=== PATIENT | female | born 1970 | race Caucasian/White ===

== ENCOUNTER 2017-02-20 11:21 | Inpatient (IN) | payer OTHER, MEDICAID ==
[~2017-02-20] VITALS: Ht 170.2 cm; Wt 95.3 kg
[~2017-02-20 11:21] MED LIST: FURO20TA PO; LEVO750T23 PO; eye drops; multivitamin PO
[2017-02-20 11:46] VITALS: BP 123/88; PULSE 95; RESP 16; O2SAT 72
--- NOTE | 2017-02-20 12:00 | ED.REPORT ---
HPI-Dyspnea / Wheezing Date of Service Feb 20, 2017 ED Provider: Cooper Barlow DO A 46 year old female on blood thinners with a history of methamphetamine abuse, heroin abuse, DVT, personality disorder, cardiomyopathy, CHF, pulmonary hypertension, MRSA infection, edema, asthma, pneumonia, depression, anxiety and hepatitis C presents to the ED due to hypoxia. The pt was recently admitted to [facility] for "a weak heart and low oxygen," and left AMA yesterday. Her medications were confiscated prior to the pt leaving. She was seen by her PCP this morning who noticed mottled, purple coloration of her legs and oxygen saturation in the seventies on room air. She now has oxygen saturations in the eighties on four liters of oxygen. The pt states that her legs were mottled when she was admitted but looked normal last night. She occasionally experiences leg pain and numbness. The pt also reports nausea, vomiting and abdominal pain for one week, though she denies hematemesis or hematochezia. Nursing Notes Stated Complaint: HEART ISSUES,LOW OXYGEN Chief Complaint: General Complaint Nursing Notes Reviewed: Yes Allergies: Coded Allergies: No Known Allergies (Verified , 02/12/13) Scheduled Aspirin (Aspirin) 325 Mg Tablet 325 MG PO QAM Fluticasone/Salmeterol (Advair 250-50 Diskus) 60 Puff/Inh Disk 1 PUFF IH BID Furosemide (Furosemide) 40 Mg Tablet 40 MG PO QAM Gabapentin (Gabapentin) 300 Mg Capsule 300 MG PO QAM GABAPENTIN 300 MG IN AM, 600 MG AT NOON, AND 900-1200 MG AT HS. Gabapentin (Gabapentin) 300 Mg Capsule 600 MG PO DAILYWL GABAPENTIN 300 MG IN AM, 600 MG AT NOON, AND 900-1200 MG AT HS. Gabapentin (Gabapentin) 300 Mg Capsule 900-1,200 MG PO HS GABAPENTIN 300 MG IN AM, 600 MG AT NOON, AND 900-1200 MG AT HS. Multivit with Calcium,Iron,Min (Multivitamins [id number]) 1 Each Tablet 1 EACH PO QAM Rivaroxaban (Xarelto) 15 Mg Tablet 15 MG PO BID Sildenafil Citrate (Sildenafil) 20 Mg Tablet 20 MG PO TID Scheduled PRN Hydromorphone (Hydromorphone) 2 Mg Tablet 2 MG PO Q6H PRN PRN Pain General Time Seen by MD: 11:59 Chief Complaint Other (Low oxygen saturation) Hx Obtained From: Patient, Other family... 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 GI: Reports: Abdominal pain, Nausea, Vomiting, Denies: Hematemesis, Hematochezia Neurologic: Reports: Numbness Physical Exam Initial Vital Signs Vital Signs (First) Date Time Temp Pulse Resp B/P Pulse Ox O2 Delivery O2 Flow Rate FiO2 02/20/17 11:46 36.5 95 16 123/88 72 Room Air Initial VS: Reviewed General/Constitutional: Awake, Alert Distress / Hydration: Positive: Distress moderate Neck: Atraumatic, Supple, Full range of motion Respiratory / Chest: Atraumatic, Breath sounds = bilat breath sounds diminished bilaterally hypoxic Cardiovascular: Heart rate NL, Regular rhythm 3/6 systolic murmur across precordium ENT: Atraumatic, Airway patent, Mucous membranes moist Abdomen: Atraumatic, Soft, Non-tender Back: Atraumatic, Full range of motion Lower Extremity / Pelvis / MS: Full range of motion Skin: Warm, Dry fingers mottled and purple toes mottled and purple lower extremities mottles and edematous multiple open, ulcerative wounds on bilateral anterior tibias Neurologic: Oriented X3, Speech NL, No motor deficits, No sensory deficits Head / Eyes: Atraumatic, Normocephalic, PERRL, EOMI Upper Extremity / MS: Atraumatic, Full range of motion Psychiatric: Affect NL, Mood NL Interpretation & Diagnostics Lab Results Interpretation Result Diagram: 02/20/17 1210 02/20/17 1210 Test 02/20/17 12:10 02/20/17 12:56 White Blood Count 10.3th/mm3 (3.8-10.1) Red Blood Count 4.89mil/mm3 (3.90-5.20) Hemoglobin 11.6g/dL (12.0-15.6) Hematocrit 37.6% (35.0-46.0) Mean Corpuscular Volume 76.9fL (81-100) Mean Corpuscular Hemoglobin 23.7pg (27.0-35.0) Mean Corpuscular Hemoglobin Concent 30.9% (32.0-37.0) Red Cell Distribution Width 17.5% (12.3-15.4) Platelet Count 208bil/L (150-400) Neutrophils (%) (Auto) 60.2% (40-74) Lymphocytes (%) (Auto) 24.0% (14-46) Monocytes (%) (Auto) 13.1% (4-12) Eosinophils (%) (Auto) 2.0% (0-5) Basophils (%) (Auto) 0.4% (0-3) Prothrombin Time 12.0sec (8.1-12.5) Prothromb Time International Ratio 1.12ratio Activated Partial Thromboplast Time 28.7sec (22.8-33.0) D-Dimer 1.02mg/L FEU (<0.50) Sodium Level 135mEq/L (134-144) Potassium Level 3.3mEq/L (3.5-5.2) Chloride Level 93mEq/L (97-108) Carbon Dioxide Level 25mmol/L (18-29) Blood Urea Nitrogen 21mg/dL (6-24) Creatinine 0.74mg/dL (0.57-1.00) Estimat Glomerular Filtration Rate 120mL/min (>59) Glucose Level 125mg/dL (60-99) Lactic Acid Level 1.9mmol/L (0.4-2.0) Calcium Level 8.8mg/dL (8.5-10.1) Magnesium Level 1.9mg/dL (1.6-2.6) Total Bilirubin 0.6mg/dL (0.0-1.2) Aspartate Amino Transf (AST/SGOT) 32U/L (0-50) Alanine Aminotransferase (ALT/SGPT) 18U/L (0-32) Alkaline Phosphatase 73U/L (25-150) Troponin T 0.010ug/L (0.0-0.011) Pro-B-Type Natriuretic Peptide 44864pn/mL (0-249) Total Protein 7.0g/dL (6.4-8.4) Albumin 3.5g/dL (3.4-5.0) Procalcitonin 0.04ng/mL (0.00-0.08) Urine Color Yellow (YELLOW) Urine Appearance Clear (CLEAR,HAZY) Urine pH 6.0 (5.0-8.0) Urine Specific [place] 1.015 (1.003-1.035) Urine Protein 30mg/dL (NEG,TRACE) Urine Glucose (UA) Negativemg/dL (NEGATIVE) Urine Ketones Negativemg/dL (NEGATIVE) Urine Occult Blood Negative (NEGATIVE) Urine Nitrite Negative (NEGATIVE) Urine Bilirubin Negative (NEGATIVE) Urine Urobilinogen Normalmg/dL (NORMAL) Urine Leukocyte Esterase Trace (NEGATIVE) Urine RBC 0-2/hpf (0-2) Urine WBC 0-5/hpf (0-5) Urine Epithelial Cells Few/hpf (NONE-MOD) Urine Crystals None seen (NONE SEEN) Urine Bacteria Few/hpf (NONE-FEW) Urine Hyaline Casts None/lpf (NONE) Urine Granular Casts None seen (NONE SEEN) Urine Waxy Casts None seen (NONE SEEN) Urine Red Blood Cell Casts None seen (NONE SEEN) Urine White Blood Cell Casts None seen (NONE SEEN) Urine Mucus None seen (None Seen) Urine Trichomonas None seen (NONE SEEN) Urine Yeast None (NONE SEEN) Urinalysis Comment None Urine Culture Reflexed Indicated Lab Results Interpretation: Positive d-dimer ABG: pH 7.508/pCO2 39/pO2 58.8/cHCO3- 30.4/cBase 7.1 ECG Interpretation ECG Interpretation: normal sinus rhythm with a rate of 91 RBBB and LAFB nonspecific T abnormalities, lateral leads Time: 12:34 Interpreted by: ED physician X-Ray Chest Interpretation Chest Xray Interpretation: IMPRESSION: 1. Pleural-parenchymal opacity at the right lung base remains prominent. Interval improvement at the left base. Dictated by: Jessee Bueno M.D. on 02/20/2017 at 13:08 Approved by: Jessee Bueno M.D. on 02/20/2017 at 13:11 Interpretation / Wet Read by: Interpret - Radiologist CT Abd / Pelvis Interpretation IMPRESSION: 1. Bilateral pleural effusions and bibasilar atelectasis. Possibility of pneumonia cannot be excluded. Source of effusions not known. 2. Diffuse edema throughout the abdominal and pelvic cano. 3. Hepatosplenomegaly. 4. Status post cholecystectomy. 5. Moderate amount of fluid in the pelvis could reflect mild ascites that is nonspecific. Dictated by: Jessee Bueno M.D. on 02/20/2017 at 13:57 Approved by: Jessee Bueno M.D. on 02/20/2017 at 14:11 Interpretation / Wet Read by: Interpret - Radiologist Re-Eval/Medical Decision Med Decision/Clinical Course likely findings of pulmonary hypertension and heart failure which is decompensated. Patient was stabilized initially on high flow nasal cannula is given 40 mg of IV Lasix and sildenafil. Neurology is consulted and does come down to the bedside to evaluate. Patient will be going to the intensive care unit. Source of Hx: Old records Re-Evaluation/Progress #1: Time of Eval: 12:13 Re-Evaluation/Progress Note: Pt rechecked, who is stable. Further history is obtained. Re-Evaluation/Progress #2: Time of Eval: 12:31 Patient Status: Condition improved Re-Evaluation/Progress Note: Pt rechecked, who is feeling better on a high flow nasal canula. Re-Evaluation/Progress #3: Time of Eval: 12:37 Re-Evaluation/Progress Note: Pt rechecked, who is stable. Oxygen saturation is 97% on HFNC 70% FiO2. Re-Evaluation/Progress #4: Time of Eval: 12:43 Re-Evaluation/Progress Note: Pt rechecked results are discussed. The diagnosis and plan for admission are discussed. The pt understands and agrees with the plan. All questions are addressed at this time. Consultation #1: Referral / Consult Name: Giovanni Christianson MD Call Returned at: 13:50 Cdl Driver: Will see patient, Agrees with eval, Agrees with plan Note: Spoke with Dr. Velez, slab tripper, regarding pt's case. Dr. Velez agrees with the evaluation and will see the pt. Consultation #2: Referral / Consult Name: Fang Taylor DO Consulted With: Hospitalist Call Returned at: 13:58 Cdl Driver: Agrees with eval, Agrees with plan, Accepts admit Note: Spoke with Dr. Taylor, hospitalist, regarding pt's case. Dr. Taylor agrees with the evaluation and agrees to admit the pt. Counseled Regarding: Diagnosis, Lab results, Need for admission Discharge & Departure Impression: Primary Impression: Respiratory failure Chronicity: unspecified Respiratory failure complication: unspecified whether with hypoxia or hypercapnia Qualified Code: J96.90 - Respiratory failure, unspecified, unspecified whether with hypoxia or hypercapnia Additional Impression: Pulmonary hypertension Disposition: ADMITTED TO HOSPITAL Discharge Condition All VS Reviewed: Yes Condition: Stable Referrals: Maria Teresa Dunbar MD (PCP) Crit Care Except Billable Proc Time Spent: 75-104 minutes (88 minutes) Services Performed: Patient management by me, Time spent at bedside, Reviewing test results, Reviewing imaging, Discussing patient care, Documentation in record, Time with fam/surrogate Scribe Attestation Portions of this note were transcribed by Jay Jay Horton. I, Dr. Barlow personally performed the history, physical exam and medical decision-making; I reviewed and confirmed the accuracy of the information in the transcribed note. copies to: Maria Teresa Dunbar MD, Timothy S DO Feb 20, 2017 12:00 JAY JAY HORTON Feb 20, 2017 12:12
[2017-02-20] MEDS ORDERED: Furosemide 10 mg/mL 2 mL Inj IVPUSH ONE ×2 (12:10→13:55)
[2017-02-20 12:24] LABS: BASOPHILS % (AUTO) 0.4 % (0-3); MONOCYTES % (AUTO) 13.1 % (4-12); Mean Corpuscular Hemoglobin 23.7 pg (27.0-35.0); Mean Corpuscular Volume 76.9 fL (81-100); NEUTROPHILS % (AUTO) 60.2 % (40-74); Platelet Count 208 bil/L (150-400)
[2017-02-20] MEDS ORDERED: Heparin 25K Unit/500mL 0.45 NS 25,000 UNIT in IV Premix 1 EACH IV ONE (12:50)
[2017-02-20] MEDS ORDERED: Heparin 5,000 Unit/mL Inj IVPUSH ONE (12:50)
[2017-02-20 12:52] LABS: D-Dimer 1.02 mg/L FEU (<0.50); INR 1.12 ratio
--- NOTE | 2017-02-20 12:54 | ABG ---
DateTimeAnalyzed 12:45:00 -_ pH ____7.508 - 7.350 7.450 pCO2 ___38.6__ -mmHg 35.0 45.0 pO2 ___58.8__ -mmHg 69.0 116 HCO3- ___30.4__ -mmol/L 22.0 26.0 ABE ____7.1__ -mmol/L -2.0 2.0 tHb ___11.6__ -g/dL 12.0 18.0 O2Hb ___87.7__ -% COHb ____2.9__ -% 0.0 1.5 MetHb ____0.8__ -% 0.4 1.5 sO2 ___91.1__ -% FIO2 ___70.0__ -% Drawn By lw - Date/Time Notified____ 12:53:00 -_ Liter_Flow ___50.0__ -L/min Oxygen Device 1 high flow - Notified By lw - Notified Whom ___Dr. O'Peggy - Age 38 -years B 755 -mmHg tO2 ___14.3__ -Vol% Oliver test _Positive -
[2017-02-20 12:55] LABS: TROPONIN T 0.01 ug/L (0.0-0.011)
[2017-02-20 13:06] LABS: Magnesium 1.9 mg/dL (1.6-2.6)
[2017-02-20 13:11] LABS: APPEARANCE,URINE CLEAR (CLEAR,HAZY); COLOR,URINE YELLOW (YELLOW)
[2017-02-20 13:12] LABS: OCCULT BLOOD,URINE NEGATIVE (NEGATIVE); UROBILINOGEN,URINE NORMAL (NORMAL)
--- NOTE | 2017-02-20 13:13 | DRSVH ---
PROCEDURE: X-RAY CHEST ONE VIEW, PORTABLE ([id number]) INDICATIONS: dyspnea TECHNIQUE: One view of the chest was acquired. COMPARISON: 02/13/2017 FINDINGS: Surgical changes and devices: None. Lungs and pleura: Bilateral pleural effusions, no pneumothorax. Increased radiodensity at the right lung base, consolidation versus loculated fluid. Infiltrate in the left retrocardiac region appears i mproved, residual soft tissue convexity along the medial border.. Mediastinum: Mediastinal contours appear normal. Heart size is normal. Bones and chest wall: No suspicious bony lesions. Overlying soft tissues appear unremarkable. IMPRESSION: 1. Pleural-parenchymal opacity at the right lung base remains prominent. Interval improvement at the left base. Dictated by: Jessee Bueno M.D. on 02/20/2017 at 13:08 Approved by: Jessee Bueno M.D. on 02/20/2017 at 13:11
--- NOTE | 2017-02-20 13:58 | DRSVH ---
PROCEDURE: CT ANGIO CHEST PULMONARY EMBOLISM ([id number]) INDICATIONS: Hypoxia with history of DVT. TECHNIQUE: After the administration of intravenous contrast, 2 mm thick sections acquired from the pulmonary api ry to the posterior costophrenic angles. 3-dimensional maximum intensity projection (MIP) coronal a nd sagittal reformats were then acquired through the thorax. For radiation dose reduction, the follo wing was used: automated exposure control, adjustment of mA and/or kV according to patient size. COMPARISON: [facility], CT, CT ABD PELVIS W CON, 02/20/2017, 13:24. [facility] al, CT, CHEST ANGIO-PE, 10/25/2013, 1:04. FINDINGS: Image quality: There is mild asymmetric motion artifact. Pulmonary arteries: Pulmonary arteries demonstrate no intraluminal filling defects to suggest centra l pulmonary embolism. Evaluation of subsegmental branches is nondiagnostic in the lung bases due to respiratory motion artifact. The pulmonary arteries are enlarged, with the main pulmonary artery martin suring up to 3.5 cm suggesting pulmonary arterial hypertension. Lungs and pleura: There are bilateral pleural effusions, moderate to large on the right and on the le ft, with associated compressive atelectasis. There are a few small groundglass nodules in the right apex and mild atelectasis along the right upper lobe posteriorly. The trachea and central airways ap pear patent. Mediastinum: The heart is mildly enlarged with prominent right ventricular enlargement and mild leftw debra deviation of the interventricular septum. No pericardial effusion. No mediastinal or hilar mary ann opathy by size criteria. Thoracic aorta is normal in caliber and enhancement. Esophagus is normal i n caliber, without hiatal hernia. Bones and chest wall: No suspicious bony lesions. Ribs and thoracic spine appear intact throughout. Thyroid gland demonstrates no discrete nodules. No axillary or supraclavicular adenopathy by size criteria. Abdomen: Visualized upper abdomen demonstrates enlargement and mildly heterogeneous appearance of th e liver which is incompletely evaluated on the current study. IMPRESSION: 1. No definite evidence of central pulmonary embolism. Evaluation of subsegmental branches in the l dian bases is nondiagnostic due to motion artifact. 2. Bilateral pleural effusions, moderate to large on the right and small on the left, with associate d compressive atelectasis. 3. Small clustered ground glass nodules in the right lung apex are nonspecific but likely infectious or inflammatory in etiology. 4. Enlargement of the pulmonary arteries as well as right ventricular enlargement suggesting pulmona ry arterial hypertension. Dictated by: Rashawn Coronado M.D. on 02/20/2017 at 13:44 Approved by: Rashawn Coronado M.D. on 02/20/2017 at 13:56
--- NOTE | 2017-02-20 14:13 | DRSVH ---
PROCEDURE: CT ABDOMEN AND PELVIS WITH CONTRAST ([id number]) INDICATIONS: hypoxia, abd pain TECHNIQUE: After the administration of intravenous contrast, 5 mm thick sections acquired from the diaphragm to the symphysis. 5 mm coronal and sagittal reformats were acquired. For radiation dose reduction, the following was used: automated exposure control, adjustment of mA and/or kV according to patient siz e. COMPARISON: CT abdomen and pelvis 12/25/2012; CTA chest 02/20/2017 FINDINGS: Image quality: Excellent. ABDOMEN: Lung bases: Bilateral pleural effusions, right greater than left, persistent since last exam. Bibasil ar atelectasis. Heart size appears normal. The superior vena cava above the diaphragm is prominent. Solid organs: Liver is enlarged at 23.5 cm, spleen is enlarged measuring 14.7 cm craniocaudal. Hepat osplenic enhancement is heterogeneous, probably related to timing of bolus injection. Gallbladder is surgically absent. Biliary system is non dilated. Pancreas enhances normally. No adrenal nodules. Kidneys demonstrate normal size and enhancement, without hydronephrosis. Peritoneum and bowel: Bowel loops demonstrate normal wall thickness and caliber. Moderate amount of stool throughout the colon. Normal appendix. No free fluid or air. Nodes and vessels: No retroperitoneal or mesenteric adenopathy by size criteria. Aorta and inferior vena cava are normal in size. Miscellaneous: Diffuse edema throughout the abdominal wall and pelvis. No ventral hernias. PELVIS: Genitourinary: The bladder is collapsed around a Stevens catheter. Intraluminal air noted. Uterus appea rs normal in size. A 1.7 cm cyst is present in the left ovary. A moderate amount of free fluid is pre sent in the pelvis. Miscellaneous: No inguinal hernias or adenopathy. Bones: No suspicious bony lesions. Levoconvex scoliosis. No vertebral body compression fractures. Degenerative disc disease L5-S1. L5 spondylolysis with grade 1 spondylolisthesis. IMPRESSION: 1. Bilateral pleural effusions and bibasilar atelectasis. Possibility of pneumonia cannot be excluded . Source of effusions not known. 2. Diffuse edema throughout the abdominal and pelvic cano. 3. Hepatosplenomegaly. 4. Status post cholecystectomy. 5. Moderate amount of fluid in the pelvis could reflect mild ascites that is nonspecific. Dictated by: Jessee Bueno M.D. on 02/20/2017 at 13:57 Approved by: Jessee Bueno M.D. on 02/20/2017 at 14:11
[2017-02-20] MEDS: fentaNYL-PF 50 mCg/mL 2 mL Inj IVPUSH PRN ×3 (14:43→19:53)
[2017-02-20 14:45] VITALS: BP 104/75; PULSE 88; RESP 19; O2SAT 92
[2017-02-20] MEDS ORDERED: ASPI325T32 PO (15:11)
[2017-02-20] MEDS ORDERED: SILD20TA14 PO (15:11)
[2017-02-20] MEDS ORDERED: MULT-528 PO (15:11)
[2017-02-20] MEDS ORDERED: HYDR2TAB28 PO (15:11)
[2017-02-20] MEDS ORDERED: GABA-502 PO ×3 (15:11)
[2017-02-20] MEDS ORDERED: FURO40TA4 PO (15:11)
[2017-02-20] MEDS ORDERED: RIVA15TA PO (15:11)
[2017-02-20] MEDS ORDERED: ADV250INH IH (15:12)
[2017-02-20 16:00] VITALS: BP 105/62; PULSE 88; RESP 12; O2SAT 95
[2017-02-20 16:02] VITALS: BP 106/79; PULSE 86; RESP 21; O2SAT 90
[2017-02-20] MEDS ORDERED: Polyethylene Glycol (PEG) 17 Gm Powder PO PRN (17:15)
[2017-02-20] MEDS ORDERED: Alum-Mag Hydrox-Simeth 30 mL Suspension PO PRN (17:15)
--- NOTE | 2017-02-20 17:27 | PCM.ADCARE ---
Advance Care Planning Note CODE STATUS: Date: 02/20/2017 Diagnosis: Acute respiratory failure with hypoxia Cardiomyopathy Severe tricuspid regurg Pulmonary hypertension Iron deficiency anemia History of DVT Drug dependence Purpose of encounter: Goals of care Parties in attendance: The patient, Dr. Taylor Decisional capacity: Good Plan: The patient is aware of the current diagnosis and would like to continue to be full code. The patient understands that this means for chest compressions , intubation, pressors, and all measures involved with CPR. CODE STATUS: Full code Time spent with advanced care planning: Greater than 16 minutes Fang Taylor DO Feb 20, 2017 17:27
--- NOTE | 2017-02-20 18:26 | PCM.HPMED ---
Subjective Date of Service Feb 20, 2017 Primary Provider: Admitting Physician: Fang Taylor DO Primary Care Physician: Maria Teresa Dunbar MD Attending Physician: Fang Taylor DO Admit Status: From the Emergency Department Chief Complaint: Shortness of breath History of Present Illness: 46-year-old female reportedly on blood thinners for DVT with a history of polysubstance abuse as well as cardiomyopathy, pulmonary hypertension, and MRSA and Hep C infection presents to the [facility] ED due to shortness of breath. The patient reports that she was admitted to [facility] in [place] for low oxygenation due to her weak heart however she left AMA yesterday when they start talking to her about possibly going on hospice. The patient states that her medications were confiscated prior to the patient leaving. The patient was seen by her PCP this morning and noticed discoloration of her legs with a low oxygen saturation reportedly in the 70s on room air. The patient states that her legs were mottled when she was admitted to [facility] but looked normal last night. The patient occasionally experiences leg pain and numbness. The patient also reports abdominal and GI distress over the last week with nausea vomiting and lower abdominal pain however denies hematemesis hematochezia or melena. She admits to nausea, several episodes of vomiting including three times today, vomiting secondary to coughing, daily episodes of diarrhea, headaches located behind her left eye, coughing with dyspnea on exertion. Patient reports her last menstrual period ended 2 days ago and is typically regular except for when she is using IV heroin. Patient has a long history of polysubstance abuse including IV heroin last used 2 months prior, inhaled methamphetamines two days ago. Review of Systems: A comprehensive review of systems is completed and all are negative except for what is contained in the history of present illness. Allergies Coded Allergies: No Known Allergies (Verified , 02/20/17) Home Medications Furosemide 40 MG PO QAM Gabapentin 300 MG PO BID Rivaroxaban 15 MG PO BID PMH Recent DVT diagnosed In late January 2017 Polysubstance abuse Anxiety PTSD. Hepatitis C. 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 Right thigh cellulitis in April 2013. 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 History of breast abscess Surgical History Tubal ligation. Cholecystectomy Family History Mother had colon and breast cancer Father had cancer unknown Grandfather had CT Aunt, uncle and two cousins with diabetes Social History Hx Alcohol Use: Yes Alcoholic Drinks Per Day: Last drank about 1 month ago. Hx Substance Use: Yes (IV heroin last used 2 months prior, inhaled methamphetamines two days ago) Hx Tobacco Use: Yes (1 pack a week) Smoking Status: Current Every Day Smoker Years of Smokin Living Arrangement: with Friends/Roommate (with boyfriend in [facility]) Exam Vital Signs Vital Sign - Last Date Time Temp Pulse Resp B/P Pulse Ox O2 Delivery O2 Flow Rate FiO2 02/20/17 16:02 86 21 106/79 90 BiPAP 02/20/17 16:00 36.8 70 Exam General: Middle age female appearing disheveled and older than stated age with a mild respiratory distress high flow oxygen in place Eyes: Patient has a white pupillary lesion in her left eye which is unreactive to light, right eye with normal pupillary response to direct light and no response to light shine contralateral eye, extraocular motion intact, anicteric sclera, noninjected conjunctiva HENT: Hirsutism noted on chin, Abrasion noted over bridge of nose, high flow oxygen in place, moist mucous membranes without central cyanosis, oropharynx clear without purulent exudate or cobblestoning mucosa, tongue with patchy plaque Neck: Supple, trachea midline, without thyromegaly or JVD, notable audible carotid pulses bilaterally without overlying bruits noted Cardiovascular: Distant heart sounds with Regular rate and regular rhythm, S1- S2 present, systolic ejection murmur noted at left lower sternal border consistent with tricuspid regurg no rubs or gallops noted Lungs: Decreased breath sounds bilaterally with mild coarse breath sounds noted in lower left lung field no wheezing noted Abdomen: Soft, diffuse generalized tenderness most significant in right upper quadrant and epigastrium, nondistended, tympanic to percussion, normal active bowel sounds, without organomegaly Extremities: significant pitting edema bilaterally in the legs up to knees with notable cyanosis and poor capillary refill in all digits of all extremities, old amputation of distal second digit on left upper extremity, notable warmth with abrasion weeping serosanguineous fluid in the anterior right lower extremity, significant noted varicosities in bilateral lower : Stevens catheter in place Skin: Warm and dry on thorax, cool and dry on extremities Neuro: Blind left eye, Nonfocal neurologic exam, able to mole move all extremities Psych: Flat affect and mildly depressed mood Lab and Diagnostics Result Diagram: 02/20/17 1210 02/20/17 1210 X-Rays, CTs and MRIs CT ABDOMEN AND PELVIS WITH CONTRAST IMPRESSION: 1. Bilateral pleural effusions and bibasilar atelectasis. Possibility of pneumonia cannot be excluded. Source of effusions not known. 2. Diffuse edema throughout the abdominal and pelvic cano. 3. Hepatosplenomegaly. 4. Status post cholecystectomy. 5. Moderate amount of fluid in the pelvis could reflect mild ascites that is nonspecific. Approved by: Jessee Bueno M.D. on 02/20/2017 at 14:11 CT ANGIO CHEST PULMONARY EMBOLISM IMPRESSION: 1. No definite evidence of central pulmonary embolism. Evaluation of subsegmental branches in the lung bases is nondiagnostic due to motion artifact. 2. Bilateral pleural effusions, moderate to large on the right and small on the left, with associated compressive atelectasis. 3. Small clustered ground glass nodules in the right lung apex are nonspecific but likely infectious or inflammatory in etiology. 4. Enlargement of the pulmonary arteries as well as right ventricular enlargement suggesting pulmonary arterial hypertension. Approved by: Rashawn Coronado M.D. on 02/20/2017 at 13:56 X-RAY CHEST ONE VIEW, PORTABLE IMPRESSION: 1. Pleural-parenchymal opacity at the right lung base remains prominent. Interval improvement at the left base. Approved by: Jessee Bueno M.D. on 02/20/2017 at 13:11 Assessment & Plan 46-year-old female reportedly on blood thinners for DVT with a history of polysubstance abuse as well as cardiomyopathy, pulmonary hypertension, and MRSA and Hep C infection presents to the [facility] ED due to shortness of breath. Acute hypoxic respiratory distress, present on admission - ABG at admission shows metabolic alkalosis with PO2 of 58.8 - CT PE protocol shows no definitive sign of pulmonary emboli however significant motion artifact is noted. There is also bilateral oral effusions are monitored on the right and small the left with compressive atelectasis as well as ground glass nodules in the right upper lung apex and significant enlargement of pulmonary arteries consistent with pulmonary hypertension. - Pulmonary consulted - Patient on high flow nasal cannula - echocardiogram ordered given history of cardiomyopathy with pulmonary hypertension on CT with bilateral lower extremity edema Acute right upper quadrant and epigastric abdominal pain - CT abdomen shows hepatosplenomegaly likely contributing to portal hypertension with some pelvic ascites - Hepatitis C, hepatitis B, and HIV testing ordered given hepatomegaly - Liver function tests show normal bili, normal ,T ALT, and normal alkaline phosphatase - Lipase at 78 and consistent with pancreatitis - Patient currently lacks a gallbladder noted on CT imaging - Pro calcitonin negative at 0.04 and inconsistent with infection - Patient started on Rocephin 2000 mg IV daily - Stool PCR ordered Chronic Pulmonary hypertension - Records indicated the patient was previously on sildenafil - Contacted patient's pharmacy indicated that she is not currently taking sildenafil - Patient given one-time dose of sildenafil - Pulmonary consulted (Dr. Christianson) and case discussed extensively with him Acute hypokalemia - Potassium of 3.3 on admission currently being diuresed with Lasix - Oral potassium 20 mEq scheduled with meals Chronic Mild microcytic Anemia - To obtain records from recent hospitalizations including [facility] - MCV of 76.9 and patient currently is premenopausal with regular periods when not on her own consistent with iron deficiency - Anemia panel ordered for the a.m. History of acute deep vein thromboses - Patient describes recent DVT diagnosed In late January 2017 - Right lower extremity is swollen warm and painful to touch and warm, however without significant leukocytosis and positive Pro calcitonin unlikely to be infection - Patient is a poor historian and records will be obtained from prior hospitalizations including [facility] - Patient's pharmacy indicates that she is currently taking Xarelto 15mg BID - Heparin drip initiated at admission until records are obtained History of Polysubstance abuse - Patient tested positive for methamphetamines - Patient has fentanyl IV for severe pain when necessary and oxycodone by mouth for moderate pain - Monitor for signs of withdrawal Anxiety with history PTSD - Monitor for signs of withdrawal - Given patient's acute hypoxic respiratory distress limited anti-anxiety medications will be given to avoid unnecessary intubation due to respiratory distress depression - Patient admitted to the ICU overnight Chronic hepatitis C - Hepatitis C antibody testing - Hepatitis B antibody testing - HIV testing History of MRSA infection - MRSA nasal swab DVT prophylaxis: Heparin drip GI prophylaxis: Protonix twice a day CODE STATUS full The patient is admitted to inpatient status with expected length of stay greater than to midnights given presenting symptoms, likely diagnosis, possible complications, and required treatment. Pain Evaluation: Adequate Pain Control GI Prophylaxis: H2 luciano VTE Prophylaxis Indicated: Meets Criteria for Anticoag Therapy VTE Prophylaxis: Other (heparin drip) Resuscitation Status: CPR: Attempt Resuscitation Time spent 60 minutes Attending Statement The patient was seen and examined together with Dr. Garcia on 02/20/17 and I have added additional information to the note above. Bryson Nelson DO Feb 20, 2017 18:26 Fang Taylor DO Feb 21, 2017 15:29
[2017-02-20] MEDS: Potassium Chloride 20 mEq SR Tablet PO SCH (18:28)
[2017-02-20] MEDS ORDERED: Heparin 25K Unit/500mL 0.45 NS 25,000 UNIT in IV Premix 1 EACH IV SCH (19:10)
[2017-02-20] MEDS ORDERED: Heparin 5,000 Unit/mL Inj IVPUSH PRN (19:10)
--- NOTE | 2017-02-20 19:32 | CONS ---
[address] [address] CONSULTATION REPORT PATIENT: LUCAS CORONA : 1970 MR#: [id number] ADMIT: 02/20/2017 JOB ID: [id number] DATE OF SERVICE: 02/20/2017 PULMONARY CRITICAL CARE CONSULTATION: REQUESTING PHYSICIAN: Fang Taylor DO REASON FOR CONSULTATION: Hypoxemic respiratory failure. HISTORY OF PRESENT ILLNESS: The patient is a 46-year-old female with a somewhat inchoate history. She apparently was in her usual state of health until maybe two weeks ago. She then developed a number of symptoms including shortness of breath, feeling of being unable to take a deep breath, diarrhea, some abdominal pain, who presented to [facility]. She underwent treatment for the above symptoms; however, she states she was told that there was little more they could do for her and therefore since "I wanted to at home" she left the hospital. However, she presented to her primary physician's office the next day because of increasing shortness of breath. She was referred to the emergency department. The patient has a number of complaints. Major is her shortness of breath. States that it has been worsening. She has a rather rich past history. Apparently six years ago she had a tooth abscess which proceeded to involve her left eye. Subsequently went blind in her left eye because the procedure required could not be done because of a problem with her heart. Had intermittent problems until about six months ago, then developed increasing shortness of breath. Was admitted to [facility] and transferred to [place], and subsequently to the [facility], where she was hospitalized for two weeks. Was not intubated. States that her chest filled up mostly with fluid. States the fluid was tapped and a copious amount of brown, somewhat mucoid fluid was obtained. She does not have a chest tube placed. She was told that she had pulmonary hypertension. Also told that she had a problem with the heart valve. Told she had sleep apnea but was unable to get an appointment to see a sleep specialist, and in fact the appointment is still pending. Also uses heroin and methamphetamine. Popped the heroin but has not done any for years. Smokes the methamphetamine. Last smoking of methamphetamine two days ago (hard to justify that history along with being in the hospital at the time, leaving the hospital yesterday and only being out for a day). Also complained of increasing abdominal pain. Had five or six diarrheal stools with the some formed stool but mostly liquid though a small amount. The patient also carries a history of hepatitis C, unknown whether it has ever been treated, and hepatitis B. With regard to her lungs, the patient states she had asthma as a child. Did fairly well until the problem with her heart six months ago. Had what sounds like a pleural effusion that was tapped. Unclear whether this was a parapneumonic effusion or a transudative effusion due to heart failure or doubtful but possible empyema. Hemothorax would also have to be considered given her description of the fluid. Overall hard to piece these few sentences description with a little further detail together. REVIEW OF SYSTEMS: No particular problem with headache. No swallowing difficulty. Has been hungry. Eating fairly well but has not had any food today as she presented to the hospital. Is quite hungry and wants to eat. Some cough. Apparently no sputum. Not bringing up any blood. Has had chronic swelling in her legs. States that the swelling gets worse at home, better in the hospital. At the present time it is currently better than usual. Also has some ulcerations on her right pretibial area, the lower one being about dime-sized, with surrounding induration but no fluctuance or tenderness, and the upper one being more nickel sized. Each lesion has loss of the overlying dermis, somewhat rolled edges, but no tenderness or fluctuance, nor puriform material expressed. Legs are always dusky and in fact look better than they usually do at the present time. No apparent urinary tract symptoms. FAMILY HISTORY: Positive for breast cancer. Colon cancer in her mother. Coronary artery disease in father. Two uncles and an aunt with diabetes mellitus. The remainder of the history was unable to be obtained as the patient was somewhat tired. OBJECTIVE: Temperature 36.5, pulse 86, respiratory rate 16 to 21, blood pressure 106/79. O2 sat on BiPAP at an FiO2 of 1.0, flow of 50 L a minute is 92% to 94%. O2 sat on admission to the emergency department on room air was 72%. General appearance: Appears much older than her stated age of 46. Head: Normocephalic. Eyes: Dense calcified lesion in the left eye consistent with blindness. Right eye conjunctiva was pink. Nose could not be examined due to the presence of a high-flow nasal O2 system. Throat: Some mild dryness of the tongue. Oropharynx was normal appearance. No erythema or any white lesions. Neck: Supple. Carotid upstroke is normal. Lymph nodes are not palpable. There is no tenderness in the neck. Chest: Fair breath sounds bilaterally, diminished somewhat more in the right lower lung field than the left. Lung otto are otherwise clear. No use of accessory muscles at rest. No chest wall tenderness. Heart: Regular rhythm. Heart tones seem normal. On deep inspiration there is a soft early systolic murmur at the mid sternal area, as well as splitting of the S2 in the pulmonic area. Abdomen: Soft. Nondistended. Two to 3+ tenderness right upper quadrant. Other examiners described the tenderness right lower quadrant and left upper quadrant as well. Some bowel tones present. Extremities are quite dusky. Missing the forefinger from the DIP left hand. Feet are slightly cool. Hands are quite cool. The skin is indurated around the two aforementioned lesions of her right pretibial area. LABORATORY DATA: Shows a white count of 10,300 with 60 polymorphonuclears, 24 lymphs, 13 monocytes, 2 eosinophils. Hemoglobin 11.6. Platelet count 280,000. Sodium 135, potassium 3.3, chloride 93, CO2 is 25, BUN 21, creatinine 0.7, glucose 125. Lactic acid is 1.9. Calcium 8.8. Magnesium 1.9. Total bilirubin 0.6. AST normal at 32. ALT 18. Alkaline phos normal at 73. Troponin-T normal at 0.01. Total protein 7, albumin 3.5. Procalcitonin is 0.04. Lipase pending. ProBNP is 12,176. D-dimer is 1. INR is 1.12. PTT is 28.7 seconds. UA is relatively normal, without any evidence of white cells, bacteria. Leukocyte esterase trace. DIAGNOSTIC STUDIES: Chest x-ray shows an opacity at the right lung base. There is an infiltrate in the left retrocardiac area, improved from prior x-ray of February 13, 2017. CT angio of the chest with PE protocol shows no evidence of central pulmonary embolism. There are bilateral pleural effusions, moderate to large on the right, small on the left. Some ground-glass opacities in the right lung apex. Marked enlargement of the right ventricle and pulmonary arteries suggesting pulmonary arterial hypertension. Abdominal CT scan shows diffuse edema throughout abdominal and pelvic cano. Hepatosplenomegaly. Status post cholecystectomy. Stevens catheter is currently draining slightly yellow urine. Currently 1600 mL present. ASSESSMENT: 1. Patient with a myriad of potential pulmonary problems. All would result in pulmonary hypertension with possible left-sided heart failure, chronic obstructive pulmonary disease (COPD), obstructive sleep apnea contributing to hypoxemia and pulmonary hypertension. The patient has been started on sildenafil in doses consistent with pulmonary hypertension. However, I think the most important thing right now is to get her oxygenated, and currently she is oxygenating reasonably well, and subsequently diuresing well. Given that she has been started on heparin, it is now in the early evening, and her pulmonary status is improving, I do not think we need to do a thoracentesis at the present time. She is feeling better with the diuresis but will need to keep a close eye on the pleural effusion, especially given her previous description. Certainly need to get the studies from the [facility] and from [facility] about what has been done six months ago and then last week. With this in mind, we need an echocardiogram to evaluate both the right and left side of the heart. Might also be useful to obtain evaluation of the valves, especially the tricuspid valve, to evaluate the right-sided pulmonary pressures and whether endocarditis is at all an option in this patient. With that in mind, would obtain three blood cultures. Do not know that we need to start broad-spectrum antibiotics at the moment for the apparently unlikely possibility of infectious endocarditis. 2. Diarrhea. Diarrhea predated her hospitalization. Will consider studies for infection. Also need to look better at her liver, given her history of hep C, hep B, whether treated or not. A minimal amount of ascites but also need to evaluate for the possibility of pancreatitis given that her history is very wide ranging but rather sparse in detail. 3. Soft tissue infections. Has some somewhat nasty looking lesions on the right pretibial area. Will leave this up to the primary team but might consider covering for strep or staph. 4. Hypoxemia. Responding nicely to the high-flow system. Oxygenating better. Oxygenation improved, as are her symptoms. My initial thought was that she would likely require intubation and in fact had her admitted to the ICU as opposed to the [facility] but I think we will very likely not have to intubate her as she has improved significantly over the past few hours, diuresing rather well. 5. Tenderness over the left sinus. When able would be helpful to get a CT of the sinus I think. She states that she had a dental abscess resulting in blindness in her left eye. Not sure who I can put this together given the tenderness over the area of the left maxillary sinus. Evaluation of the anatomy might be helpful. PLAN: 1. Continue high-flow nasal oxygen system. 2. Lasix 20 mg maybe every 6-8 hours as her urine output tapers off as long as hemodynamics allow. 3. Chest x-ray in the morning to evaluate for the efficacy of the diuresis. If minimal to no improvement, will need thoracentesis. 4. Consider 3 blood cultures. 5. Consider treatment for soft tissue infection of the legs. 6. Serum lipase. 7. Repeat cultures in the morning with evaluation of the history of hepatitis B and hepatitis C and whether this has been treated or not. We will get the records. In the meantime, probably get hep C viral titers. 8. Stool for PCR. Possible infectious origin to the diarrhea. 9. Echocardiogram to evaluate LV function and RV function, as well as right-sided pressures. TIME: Time spent so far in critical care including speaking with the ER physicians and primary care team 2 hours 20 minutes.
[2017-02-20 19:39] VITALS: BP 98/69; PULSE 89; RESP 16; O2SAT 92
[2017-02-20] MEDS: cefTRIAXone Inj 2,000 MG in Dextrose 5% Minibag Plus 50 ML IV SCH (19:53)
[2017-02-20] MEDS ORDERED: fentaNYL-PF 50 mCg/mL 2 mL Inj IVPUSH PRN (20:20)
[2017-02-20] MEDS ORDERED: Famotidine Inj 20 MG in IV Premix 1 EACH IV SCH (20:30)
[2017-02-20 21:28] LABS: Unsaturated Iron Binding 471.2 ug/dL
[2017-02-20] MEDS: LORazepam 1 mg Tablet PO PRN (21:37)
[2017-02-20 22:28] LABS: Magnesium 1.8 mg/dL (1.6-2.6)
--- NOTE | 2017-02-20 22:31 | ABG ---
DateTimeAnalyzed 22:23:00 -_ pH ____7.490 - 7.350 7.450 pCO2 ___42.0__ -mmHg 35.0 45.0 pO2 ___68.2__ -mmHg 69.0 116 HCO3- ___31.7__ -mmol/L 22.0 26.0 ABE ____7.8__ -mmol/L -2.0 2.0 tHb ___11.1__ -g/dL 12.0 18.0 O2Hb ___91.4__ -% COHb ____1.9__ -% 0.0 1.5 MetHb ____0.8__ -% 0.4 1.5 sO2 ___93.9__ -% FIO2 __100.0__ -% Drawn By TLA - Device 2 L/M 60 - Date/Time Notified____ 22:31:00 -_ Oxygen Device 1 __CANNULA - Notified By TLA - Notified Whom Tanya S-RN - Age 38 -years B 755 -mmHg tO2 ___14.3__ -Vol% Oliver test _Positive -
[2017-02-20 23:12] VITALS: BP 104/75; PULSE 88; RESP 28; O2SAT 93
[2017-02-21] VITALS (11 sets, daily range): BP systolic 96–110; BP diastolic 62–87; PULSE 78–96; RESP 12–28; O2SAT 84–99
[2017-02-21 04:18] LABS: BASOPHILS % (AUTO) 0.6 % (0-3); EOSINOPHILS % (AUTO) 3.4 % (0-5); MONOCYTES % (AUTO) 10.8 % (4-12); Mean Corpuscular Hemoglobin 23.7 pg (27.0-35.0); Mean Corpuscular Volume 76.1 fL (81-100); NEUTROPHILS % (AUTO) 55.9 % (40-74); Platelet Count 195 bil/L (150-400)
[2017-02-21 04:39] LABS: Magnesium 1.8 mg/dL (1.6-2.6)
--- NOTE | 2017-02-21 05:48 | ABG ---
DateTimeAnalyzed 05:40:00 -_ pH ____7.509 - 7.350 7.450 pCO2 ___40.1__ -mmHg 35.0 45.0 pO2 ___49.5__ -mmHg 69.0 116 HCO3- ___31.7__ -mmol/L 22.0 26.0 ABE ____8.1__ -mmol/L -2.0 2.0 tHb ___11.3__ -g/dL 12.0 18.0 O2Hb ___83.6__ -% COHb ____1.7__ -% 0.0 1.5 MetHb ____0.8__ -% 0.4 1.5 sO2 ___85.7__ -% FIO2 __100.0__ -% Drawn By TLA - Device 2 L/M 60 - Date/Time Notified____ 05:48:00 -_ Oxygen Device 1 high flow - Notified By TLA - Notified Whom Tanya S.- RN - Age 38 -years B 756 -mmHg tO2 ___13.2__ -Vol% Oliver test _Positive -
--- NOTE | 2017-02-21 08:54 | DRSVH ---
PROCEDURE: X-RAY CHEST ONE VIEW, PORTABLE ([id number]) INDICATIONS: Hypoxia, oxygen hi flow TECHNIQUE: One view of the chest was acquired. COMPARISON: [facility], CT, CT ANGIO CHEST PE, 02/20/2017, 13:24. [facility] , CR, XR CHEST 1VW (PORTABLE), 02/20/2017, 12:54. FINDINGS: Surgical changes and devices: None. Lungs and pleura: Small bilateral pleural fluid collections increasing opacification noted in the lef t lung base concerning for pneumonia. Mediastinum: Mediastinal contours appear normal. Heart size is normal. Bones and chest wall: No suspicious bony lesions. Overlying soft tissues appear unremarkable. IMPRESSION: Increasing opacification left lung base suspicious for pneumonia. Bilateral pleural effus ions. Dictated by: Marychuy Escalante MD, PhD on 02/21/2017 at 8:50 Approved by: Marychuy Escalante MD, PhD on 02/21/2017 at 8:53
[2017-02-21] MEDS: Potassium Chloride 20 mEq SR Tablet PO SCH (09:16)
--- NOTE | 2017-02-21 09:54 | ABG ---
DateTimeAnalyzed 09:47:00 -_ pH ____7.481 - 7.350 7.450 pCO2 ___43.3__ -mmHg 35.0 45.0 pO2 ___86.9__ -mmHg 69.0 116 HCO3- ___32.0__ -mmol/L 22.0 26.0 ABE ____7.9__ -mmol/L -2.0 2.0 tHb ___11.5__ -g/dL 12.0 18.0 O2Hb ___94.3__ -% COHb ____1.8__ -% 0.0 1.5 MetHb ____0.8__ -% 0.4 1.5 sO2 ___96.8__ -% FIO2 __100.0__ -% Pressure_Support ___17.0__ -cmH2O PEEP ____8.0__ -cmH2O Set_RR ___12.0__ -b/min Drawn By blf - Date/Time Notified____ 09:53:00 -_ Spontaneous_RR ___20.0__ -b/min Oxygen Device 1 ____BIPAP - Notified By blf - Notified Whom Ana Hoeft RN - Age 38 -years B 756 -mmHg tO2 ___15.3__ -Vol% Oliver test _Positive -
--- NOTE | 2017-02-21 10:35 | NUR ---
Social Work: Attempted Assessment/Multidisciplinary Rounds D: Pt discussed in multidisciplinary rounds; the patient is on day 1 of stay with end stage heart and lung disease. The patient was just at [facility] and left AMA after receiving news of her disease process, pt went to her PCP and immediately instructed to come to the ED. Pt admitted to CCU currently on BIPAP. Pt is being followed by the CCU team. Patient may require palliative care consult. Pt has a history of substance use (heroin and meth). SUBWAREHOUSE SUPERVISOR requested CM order for CD assessment. Pt has screened in for intensive case management due to the number of providers involved with her care, and patient's history of substance use. SUBWAREHOUSE SUPERVISOR attempted to meet with the patient at bedside. Social work/dcp role explained, contact information and discharge planning checklist provided. The patient is presently on BIPAP and requested SUBWAREHOUSE SUPERVISOR return at a later time to discuss discharge planning. SUBWAREHOUSE SUPERVISOR agreed. A: Pt who lives in [place]. P: Evolving; SUBWAREHOUSE SUPERVISOR to continue to follow pt's clinical progress and return tomorrow to complete initial assessment. LESLEY Caballero
--- NOTE | 2017-02-21 10:44 | NUR ---
NUTRITION ASSESSMENT Assess: 46 YO F admitted to CCU for respiratory failure requiring BiPAP. Palliative consult pending. Pt has heart healthy diet ordered but no PO intake recorded yet. 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 DIET: Heart Healthy. No PO intake recorded yet. LABS: Reviewed. MEDICATIONS: Lasix. GI: No BM noted. Diarrhea noted. SKIN: No issues noted. ANTHROPOMETRICS: Wt: 95.3 kg, Wt: 32.9 kg/m2, Admit wt: 95.3 kg, IBW: 61.4 kg. ESTIMATED NEEDS: BMI Calories: 1559-1830 kcal/day (20-22 kcal/kg BW) Protein: 74-92 g/day (1.2-1.5 g/kg IBW) NUTRITION DIAGNOSIS: 1) No diagnosis at this time. INTERVENTION: 1) Continue current diet as ordered. MONITOR/EVALUATE: PO intake, diet tolerance, labs, POC, GI/nutrition status. Follow per moderate nutrition risk guidelines.
--- NOTE | 2017-02-21 11:00 | NUR ---
Palliative Care Palliative Care received order from Dr Moya 02/21/17 (late day) to assist with goals of care. Patient admitted 02/20/17. Vamshi () [phone] Palliative Care to follow. Roseline Loredo
--- NOTE | 2017-02-21 13:46 | PROG NOTE ---
[address] [address] PROGRESS NOTE PATIENT: LUCAS CORONA : 1970 MR#: [id number] ADMIT: 02/20/2017 JOB ID: [id number] DATE: 02/21/2017 PULMONARY CRITICAL CARE FOLLOWUP NOTE: PROBLEM LIST: 1. Hypoxemic respiratory failure. 2. Bilateral pleural effusions. 3. Diarrhea. 4. History of pulmonary hypertension. 5. Abnormal heart valve. 6. Polysubstance abuse. 7. History of hepatitis C and B. SUBJECTIVE: None. Patient lying in bed. Minimally responsive. However later responded well to nursing interventions. OBJECTIVE: Temperature 36.6, pulse 79-83, respiratory rate 18-25, blood pressure 110/66, O2 sat on FiO2 of 90%, PEEP of 8, on BiPAP of 17/8 with an FiO2 1.0, has a pO2 of 96%. General appearance: Very lethargic. As mentioned she was minimally responsive during my evaluation. Currently sitting up at the bedside and interacting with nursing. Nose and throat could not be examined. Chest: Moderately decreased breath sounds, though BiPAP indicates she is getting tidal volume breaths of about 600 mL. Seemingly more diminished at the right lower lung field. Possibly a few scattered crackles, but minimal and variable in character. Heart: Regular rhythm. Heart tones normal. Abdomen: Soft. Quiet. Extremities: Bandage over the ulcerated lesion in the upper pretibial area. Right lower looks clear, with rather bizarre margins being surgically straight, comprising a square. Epidermis, dermis, and subcu tissue removed with the fascia present, which looks quite benign. Extremities remain extremely cyanotic. Poor capillary refill, maybe 3-4 seconds. The patient was started on BiPAP earlier this morning due to hypoxemic respiratory failure. With BiPAP of 17/8, rate of 12, with the patient breathing in the low 20s, seeing tidal volume of about 600. ABGs show a pO2 of 86 and an FiO2 of 1.0, pCO2 of 43, pH 7.48. Both the FiO2 and pressure has been decreased subsequently. LABORATORY DATA: Shows a white count of 8900 with normal differential. Hemoglobin stable at 11.6. Platelet count 195,000. Sodium 138, potassium 3.8, chloride 95, CO2 is 28, BUN 23, creatinine 0.8, glucose 98. Hemoglobin A1c is 6.6. Calcium 9, magnesium 1.8. Total bilirubin, transaminases, and alkaline phos all normal. Albumin 3.4. The patient currently on Xarelto. Tox screen positive for opiates and amphetamines. Serology for hepatidities pending. Nasal swab for MRSA pending. Urine output 1.5 mL with input of 0.3. DIAGNOSTIC STUDIES: Chest x-ray shows increasing opacification of left base with "small" bilateral pleural collections. Studies received from [facility]: The patient has severe tricuspid regurgitation, severe hypokinesis, and dilatation of the right ventricle, with elevated pulmonary artery pressures of about 60. The left ventricle shows an ejection fraction of about 55%. Apparently the patient has been discussed with Cardiology and Pulmonary Critical Care at various institutions and no intervention would be helpful in correcting her abysmal condition. Still awaiting data on pulmonary function as well as the pleural fluid previously obtained. ASSESSMENT: 1. Hypoxemic respiratory failure. The patient doing reasonably well on BiPAP. Not sure of where we are going with regard to her status. Without better cardiac function we will not do very well with regard to diuresis. Probably does not need any further fluid as her right ventricle is unable to handle it. Would consider dobutamine to see if we could diurese her. Might be helpful to do thoracentesis. She currently is on anticoagulants and in some ways doing a little bit better. Will keep an eye on the pleural fluid extent and maybe reconsider tapping it but no real good evidence for pulmonary infection at this point. We are assuming that the fluid represents a transudate. That may not be correct and we may be dealing with a parapneumonic effusion, complicated or no. 2. History of deep venous thrombosis (DVT). Need to explore whether we need to continue the anticoagulation or not. 3. Severe pulmonary hypertension. Presume multifactorial due to underlying lung disease (asthma/chronic obstructive pulmonary disease (COPD), heroin and methamphetamine abuse, pleural effusions, possible history of nocturnal hypoxemia). Will see if we can oxygenate her a little better. Currently doing reasonably well with BiPAP but might improve with dobutamine. Apparently cardiology consult is pending. Will discuss thoughts with them after they have seen the patient and we have hopefully gotten some further data regarding her cardiopulmonary underlying status. 4. Ulcerated cellulitis. Looks rather clean actually. However, given her underlying status, would continue with antibiotics. Awaiting MRSA screen but might consider extending the antibiotics to include vancomycin for MRSA coverage and possibly even consider metronidazole for anaerobic coverage as we do not know her immunologic status and certainly she has peripheral vascular disease with ulcerated stasis dermatitis. 5. Diarrhea. Has apparently resolved. No stool to send for studies which would argue strongly against any kind of significant diarrheal illness. 6. History of viral hepatidities. Awaiting studies. 7. Code status. Palliative Care has done a extensive evaluation with a search of relatives. Apparently they are aware of the patient's severely debilitated condition. However, the relationship has been almost tangential at best, with minimal to no involvement, as she has discarded the various options presented to her in the past without any change in her substance abuse and risky behavior. She has in the past declined intervention. However, Palliative Care has ascertained that the patient is at the moment requesting all interventions be employed including intubation and mechanical ventilation, with the patient understanding she will never get off the ventilator. Will have to work through this as this seems to be a rather discouraging course. Previous examiners have felt interventions would be futile and declined aggressive care. PLAN: 1. Continue BiPAP. 2. Physical therapy. 3. Reevaluate pleural effusions, maybe considering the extent with ultrasound and then talking about the possibility of a tap, and then would have to deal with Xarelto. My understanding is that Interventional Radiology would not proceed without having patient off Xarelto for maybe 3-5 days. Will explore that avenue if indeed she has tappable pleural effusions. 4. Continue current regimen. 5. Awaiting more definitive data before hardening outlook on her prognosis and care. 6. Patient discussed with Palliative Care as well as primary care team. TIME: Time spent in critical care 50 minutes.
--- NOTE | 2017-02-21 14:19 | PCM.CONPAL ---
Date of Service Feb 21, 2017 Date of Hospital Admission: Feb 20, 2017 at 14:27 Date of Palliative Consult: Feb 21, 2017 Requesting Provider: Lupe Oliva DO Reason Palliative Care Consult: Goals of Care Discussion Hospital Unit @time of consult: Critical Care Palliative Care Recommendation 46-year-old female with long-standing history of polysubstance abuse with consequent severe pulmonary hypertension, right heart dilation and failure, complete tricuspid valve incompetence, multiple additional medical problems and progressive respiratory failure admitted with severe hypoxic respiratory failure. Palliative medicine consult to assist with determination of goals of care. Summary of palliative recommendations: -Symptom management (Pain/other)- continued management per medical/critical care teams -DPOA/Advanced Directives/POLST- patient has been inconsistent in delineating her wishes. At this time, she does say that she would accept intubation/ mechanical ventilation and other aggressive resuscitation care if needed. It was explained very carefully and completely to her that, if she deteriorated to the point of requiring these interventions, she almost certainly would never be extubated or return to independent life, but she continued to indicate that she would want such interventions. Situation discussed at length with her sister Rin as well who expresses understanding that the patient's quality of life and prognosis are dismal, but that as long as the patient is decisional we should provide care as she wishes. -Family/emotional support- her family members and significant others seem to have good insight and understanding into her problems. They are as supportive as they feel they can be but understand that she is probably nearing the end of her life. Additional Medical Diagnoses with primary management by Hospitalist team include : Acute hypoxic respiratory distress, present on admission Acute right upper quadrant and epigastric abdominal pain Chronic Pulmonary hypertension Acute hypokalemia Chronic Mild microcytic Anemia History of acute deep vein thromboses History of Polysubstance abuse Anxiety with history PTSD Chronic hepatitis C History of MRSA infection Problems: End of Life Preferences Full code/full resuscitation at this time Goals of Care Unclear- when patient left [facility] AM she indicated that she wanted to go home to but now indicates she wishes all possible interventions and resuscitation efforts Disposition To be determined Resuscitation Status Resuscitation Status: CPR: Attempt Resuscitation POLST Updates/Changes Previous POLST?: No . Pain: None Symptom management: Dyspnea Pt History History of Present Illness Per admission H&P: 46-year-old female reportedly on blood thinners for DVT with a history of polysubstance abuse as well as cardiomyopathy, pulmonary hypertension, and MRSA and Hep C infection presents to the [facility] ED due to shortness of breath. The patient reports that she was admitted to [facility] in [place] for low oxygenation due to her weak heart however she left AMA yesterday. The patient states that her medications were confiscated prior to the patient leaving. The patient was seen by her PCP this morning and noticed discoloration of her legs with a low oxygen saturation reportedly in the 70s on room air. The patient states that her legs were mottled when she was admitted to [facility] but looked normal last night. The patient occasionally experiences leg pain and numbness. The patient also reports abdominal and GI distress over the last week with nausea vomiting and lower abdominal pain however denies hematemesis hematochezia or melena. She admits to nausea, several episodes of vomiting including three times today, vomiting secondary to coughing, daily episodes of diarrhea, headaches located behind her left eye, coughing with dyspnea on exertion. Patient reports her last menstrual period ended 2 days ago and is typically regular except for when she is using IV heroin. Patient has a long history of polysubstance abuse including IV heroin last used 2 months prior, inhaled methamphetamines two days ago. Palliative medicine consulted to assist in determination of goals of care. Patient had been quite inconsistent in expression of her wishes to other caregivers. Prior to positioning, reviewed her records in the EMR in detail, both for this as well as previous admissions. Also reviewed transfer records from [facility] and [facility]. I also spoke with her sister Rin (closest living relative; [phone]) and the mother of her significant other (Jaelyn Alas; [phone]) I arrived to see patient, she was sleeping but arousable, wearing BiPAP mask. Significant dyspnea but is able to answer brief questions. Over the course of the next hour her level of consciousness improved steadily as oxygenation improved and she was later able to speak quite clearly through the mask. After admission to [facility] for dyspnea with severe hypoxia, she had ultimately left AMA, same something to the effect of 'I want to go home to with friends'. She thereafter saw her PCP and was referred for admission here. Records were obtained from [facility] which were reviewed in detail- she has a long history of polysubstance abuse (with ongoing methamphetamine abuse) and subsequent progressive severe pulmonary hypertension, tricuspid insufficiency, severe right heart failure and dilation. Apparently, she has been deemed not a candidate for further aggressive mechanical intervention and had been told that she was entering the terminal phase of her illness. She had been transitioned to comfort care and [facility] but then left AMA. Since admission here, she has stated that she would want full resuscitation efforts including intubation and mechanical ventilation. When I talk with her about this again, she became tearful but again indicated quite firmly that she did want full aggressive resuscitation efforts to be made. Fortunately, her severe hypoxemia has stabilized on BiPAP (at least for the moment). I talked at length with with her sister and her significant other's mother. They indicated that the patient has expressed to them that she realizes she is nearing end-of-life, and at times would indicate that she just wanted to be kept comfortable but at other times has said she wanted to continue aggressive care. Unfortunately, her behaviors have not been consistent with her occasionally stated wishes to optimize her chances of survival, and she has been inconsistent with her medical care and follow-up, with continuing polysubstance abuse, with methamphetamine use within the last several days and heroin within the last 2 months. Past Medical History Significant PMH Noted: Recent DVT diagnosed In late January 2017 Polysubstance abuse Anxiety PTSD. Hepatitis C. 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 Right thigh cellulitis in April 2013. 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 History of breast abscess Surgical History Tubal ligation. Cholecystectomy Social History Occupation: Unemployed; medically disabled Family Members Issues: Sister Rin - her closest living relative; phone [phone]; lives in [place] but will be arriving here on February 26 She also has a brother, Raffi, who is a [employer] chief yusuf officer and resides in [place]- however, they are apparently completely estranged and have no contact Jaelyn Alas; phone [phone] mother of her significant other Vamshi Alas ADLs ADL Patient Status: Baseline ADL Ambulation: Full ADL Dressing: Full ADL Feeding: Full ADL Hygene/bathing: Full ADL Transfers: Full POLST at Time of Admission Previous POLST?: No Allergy Allergies Reviewed: Yes Medications Current Medications: Current Medications Fentanyl Citrate 25 mcg 25 mcg Q15MIN PRN IVPUSH Last administered on 02/20/17 19:53; Admin Dose 25 MCG; Start 02/20/17 at 14:35; Stop 02/20/17 at 20:22; Status DC Famotidine/Sodium Chloride/Premix 50 ml @ 100 mls/hr Q12 IV; Start 02/20/17 at 20:30; Stop 02/20/17 at 20:30; Status DC Al Hydrox/Mg Hydrox/Simethicone 30 ml Q6H PRN PO; Start 02/20/17 at 17:15 Ondansetron HCl 4 to 8 mg Q4H PRN IVPUSH; Start 02/20/17 at 17:15 Senna 17.2 mg BID PRN PO; Start 02/20/17 at 17:15 Polyethylene Glycol 17 gm DAILY PRN PO; Start 02/20/17 at 17:15 Potassium Chloride 20 meq 20 meq DAILYWM PO Last administered on 02/21/17 09:16 ; Admin Dose 20 MEQ; Start 02/20/17 at 17:15 Ceftriaxone Sodium/Dextrose/ Water 50 ml @ 100 mls/hr HS IV Last administered on 02/20/17 19:53; Admin Dose 100 MLS/HR; Start 02/20/17 at 18:00 Rivaroxaban 15 mg BID PO; Start 02/20/17 at 20:30; Stop 02/20/17 at 20:30; Status DC Gabapentin 300 mg BID PO Last administered on 02/21/17 09:16; Admin Dose 300 MG ; Start 02/20/17 at 20:30 Furosemide 40 mg DAILY PO Last administered on 02/21/17 09:15; Admin Dose 40 MG ; Start 02/21/17 at 08:30 Heparin Sodium (Porcine) Per Protocol for a... PRN PRN IVPUSH; Start 02/20/17 at 19:10; Stop 02/21/17 at 04:51; Status DC Famotidine 20 mg BID PO Last administered on 02/21/17 09:16; Admin Dose 20 MG; Start 02/20/17 at 20:30 Fentanyl Citrate 25 mcg Q2H PRN IVPUSH; Start 02/20/17 at 20:20; Stop 02/20/17 at 21:27; Status DC Oxycodone HCl 5 mg Q4H PRN PO; Start 02/20/17 at 20:20 Hydromorphone HCl 2 mg Q4H PRN PO Last administered on 02/20/17 21:37; Admin Dose 2 MG; Start 02/20/17 at 21:30 Lorazepam 1 mg TID PRN PO Last administered on 02/20/17 21:37; Admin Dose 1 MG ; Start 02/20/17 at 21:30 Rivaroxaban 15 mg BID PO Last administered on 02/21/17 09:16; Admin Dose 15 MG; Start 02/21/17 at 08:30 Scheduled Aspirin (Aspirin) 325 Mg Tablet 325 MG PO QAM Fluticasone/Salmeterol (Advair 250-50 Diskus) 60 Puff/Inh Disk 1 PUFF IH BID Furosemide (Furosemide) 40 Mg Tablet 40 MG PO QAM Gabapentin (Gabapentin) 300 Mg Capsule 300 MG PO QAM GABAPENTIN 300 MG IN AM, 600 MG AT NOON, AND 900-1200 MG AT HS. Gabapentin (Gabapentin) 300 Mg Capsule 600 MG PO DAILYWL GABAPENTIN 300 MG IN AM, 600 MG AT NOON, AND 900-1200 MG AT HS. Gabapentin (Gabapentin) 300 Mg Capsule 900-1,200 MG PO HS GABAPENTIN 300 MG IN AM, 600 MG AT NOON, AND 900-1200 MG AT HS. Multivit with Calcium,Iron,Min (Multivitamins F-[id number]) 1 Each Tablet 1 EACH PO QAM Rivaroxaban (Xarelto) 15 Mg Tablet 15 MG PO BID Sildenafil Citrate (Sildenafil) 20 Mg Tablet 20 MG PO TID Scheduled PRN Hydromorphone (Hydromorphone) 2 Mg Tablet 2 MG PO Q6H PRN PRN Pain Current Treatments BiPAP/CPAP: Yes Oxygen: Yes IV Fluids: Yes Antibiotics: Yes Telemetry: Yes Critical Care Unit: Yes Objective Findings Exam Vital Sign - Last Date Time Temp Pulse Resp B/P Pulse Ox O2 Delivery O2 Flow Rate FiO2 02/21/17 11:26 83 25 110/66 99 90 02/21/17 08:00 36.6 BiPAP Intake and Output 02/20/17 02/20/17 02/21/17 Cumulative From/Thru 14:59 22:59 06:59 02/20/17 11:46 - 02/21/17 06:26 Intake Total 326 ml 513 ml 839 ml Output Total 1500 ml 1500 ml Balance -1174 ml 513 ml -661 ml Intake Oral 200 ml 100 ml 300 ml IV Total 126 ml 413 ml 539 ml Output Urine Total 1500 ml 1500 ml Objective Chronically ill-appearing woman, older appearing than her stated age, lying in CCU bed. BiPAP mask in place. Skin warm and dry, no cyanosis when I saw her. Head and neck exam limited due to BiPAP mask. Lungs with decreased breath sounds diffusely but no wheezes. Heart tones rapid and regular. Abdomen soft, diffuse mild tenderness but no peritoneal signs, rigidity or masses. Lower extremity edema bilaterally. Neuro exam nonfocal/not lateralized other than chronic left eye blindness Lab/Diagnostics Lab and Imaging results reviewed in detail in EMR. Time spent Total time 90 minutes; >50% face to face with patient and family, providing counselling regarding plans and recommendations, and in care coordination with her medical teams. Of the above total time, 45 minutes counseling for advanced care planning with the patient and family members Vamshi Liriano MD Feb 21, 2017 14:18
--- NOTE | 2017-02-21 17:26 | PCM.PNMED ---
Subjective Date of Service Feb 21, 2017 Subjective Lizzy Yañez is a 46-year-old female reportedly on blood thinners for DVT with a history of polysubstance abuse as well as cardiomyopathy, pulmonary hypertension, and MRSA and Hep C infection presents to the [facility] ED due to shortness of breath. This morning, patient was very lethargic during my interview. However, she responded to questions appropriately. She denies chest pain and reports that Bipap helps her breathing. She states that she continues to have diffuse abdominal pain. She was started on Bipap this morning because of hypoxemic respiratory failure. There were no acute events overnight. Exam Vital Signs Vital Sign - Last Date Time Temp Pulse Resp B/P Pulse Ox O2 Delivery O2 Flow Rate FiO2 02/21/17 11:26 83 25 110/66 99 90 02/21/17 08:00 36.6 BiPAP Intake and Output 02/20/17 02/20/17 02/21/17 Cumulative From/Thru 15:00 23:00 07:00 02/20/17 11:46 - 02/21/17 06:26 Intake Total 326 ml 513 ml 839 ml Output Total 1500 ml 1500 ml Balance -1174 ml 513 ml -661 ml Intake Oral 200 ml 100 ml 300 ml IV Total 126 ml 413 ml 539 ml Output Urine Total 1500 ml 1500 ml Exam General: Patient is lying on bed, lethargic but is alert and oriented X3, not in acute distress, not very cooperative with my physical exam HEENT: head normocephalic and atraumatic, left eye with dense white lesion and not reactive to light, Right eye- round and reactive to light, no scleral icterus, noninjected conjunctiva Neck: neck supple, non-tender, no lymphadenopathy, trachea midline, no JVD CV: regular rate and rhythm, s1 and s2 heard, radial pulses 2+ and equal bilaterally, murmur heard best on lower left sternal border Lungs:on Bipap with FiO2 at 100%, decreased breath sounds bilaterally, difficult to listen to lung bases as patient did not want to lean forward, no wheezes, no increased work of breathing Abdomen: normoactive bowel sounds on 4Q, soft, non-distended, diffusely tender to mild palpation Skin: increased warmth in LE bilaterally, LE bilaterally evidence of erythematous, open lesions draining serosanguinous fluids Extremities: UE, 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, LE- moderate pitting edema bilaterally, evidence of cyanosis Neuro: Grossly neurologically intact, cranial nerves II through XII intact, no focal neuro deficits Psych: Patient with flat affect IVs and Medications Medications Reviewed: Medications were reviewed in detail Medications High Risk medications include Dilaudid and lorazepam Lab and Diagnostics Laboratory Tests Test 02/20/17 18:26 02/20/17 21:46 02/20/17 22:30 02/21/17 04:00 Hold Purple Top Tube Received (Received) Hemoglobin A1c 6.6% (4.8-5.6) Sodium Level 136mEq/L (134-144) 138mEq/L (134-144) Potassium Level 3.7mEq/L (3.5-5.2) 3.8mEq/L (3.5-5.2) Chloride Level 94mEq/L (97-108) 95mEq/L (97-108) Carbon Dioxide Level 23mmol/L (18-29) 28mmol/L (18-29) Blood Urea Nitrogen 20mg/dL (6-24) 23mg/dL (6-24) Creatinine 0.79mg/dL (0.57-1.00) 0.87mg/dL (0.57-1.00) Estimat Glomerular Filtration Rate 112mL/min (>59) 100mL/min (>59) Glucose Level 98mg/dL (60-99) 98mg/dL (60-99) Calcium Level 8.8mg/dL (8.5-10.1) 9.0mg/dL (8.5-10.1) Magnesium Level 1.8mg/dL (1.6-2.6) 1.8mg/dL (1.6-2.6) Activated Partial Thromboplast Time 116.1sec (22.8-33.0) 58.9sec (22.8-33.0) Hold Montiel Top Tube Received (Received) White Blood Count 8.9th/mm3 (3.8-10.1) Red Blood Count 4.89mil/mm3 (3.90-5.20) Hemoglobin 11.6g/dL (12.0-15.6) Hematocrit 37.2% (35.0-46.0) Mean Corpuscular Volume 76.1fL (81-100) Mean Corpuscular Hemoglobin 23.7pg (27.0-35.0) Mean Corpuscular Hemoglobin Concent 31.2% (32.0-37.0) Red Cell Distribution Width 17.6% (12.3-15.4) Platelet Count 195bil/L (150-400) Neutrophils (%) (Auto) 55.9% (40-74) Lymphocytes (%) (Auto) 29.2% (14-46) Monocytes (%) (Auto) 10.8% (4-12) Eosinophils (%) (Auto) 3.4% (0-5) Basophils (%) (Auto) 0.6% (0-3) Total Bilirubin 0.6mg/dL (0.0-1.2) Aspartate Amino Transf (AST/SGOT) 23U/L (0-50) Alanine Aminotransferase (ALT/SGPT) 15U/L (0-32) Alkaline Phosphatase 68U/L (25-150) Total Protein 6.5g/dL (6.4-8.4) Albumin 3.4g/dL (3.4-5.0) Hepatitis C Comment . Microbiology 02/20/17 Blood Culture, Received Pending 02/20/17 MRSA (PCR) - Preliminary, Resulted 02/20/17 Urine Culture - Preliminary, Resulted No growth to date Result Diagram: 02/21/17 0400 02/21/17 0400 X-Rays, CTs and MRIs Repeat X-RAY CHEST ONE VIEW, PORTABLE ([id number]) IMPRESSION: Increasing opacification left lung base suspicious for pneumonia. Bilateral pleural effusions. Approved by: Marychuy Escalante MD, PhD on 02/21/2017 at 8:53 CT ABDOMEN AND PELVIS WITH CONTRAST IMPRESSION: 1. Bilateral pleural effusions and bibasilar atelectasis. Possibility of pneumonia cannot be excluded. Source of effusions not known. 2. Diffuse edema throughout the abdominal and pelvic cano. 3. Hepatosplenomegaly. 4. Status post cholecystectomy. 5. Moderate amount of fluid in the pelvis could reflect mild ascites that is nonspecific. Approved by: Jessee Bueno M.D. on 02/20/2017 at 14:11 CT ANGIO CHEST PULMONARY EMBOLISM IMPRESSION: 1. No definite evidence of central pulmonary embolism. Evaluation of subsegmental branches in the lung bases is nondiagnostic due to motion artifact. 2. Bilateral pleural effusions, moderate to large on the right and small on the left, with associated compressive atelectasis. 3. Small clustered ground glass nodules in the right lung apex are nonspecific but likely infectious or inflammatory in etiology. 4. Enlargement of the pulmonary arteries as well as right ventricular enlargement suggesting pulmonary arterial hypertension. Approved by: Rashawn Coronado M.D. on 02/20/2017 at 13:56 X-RAY CHEST ONE VIEW, PORTABLE IMPRESSION: 1. Pleural-parenchymal opacity at the right lung base remains prominent. Interval improvement at the left base. Approved by: Jessee Bueno M.D. on 02/20/2017 at 13:11 Cardiac Echo Impressions Most recent ECHO on 02/15/17 from [facility] shows Low normal LV systolic function. LV EF 55%. RV and RA severely dilated. RV severely hypokinetic. Pulmonary artery pressures moderately elevated at about 60. Severe tricuspid regurgitation. Assessment & Plan 46-year-old female reportedly on blood thinners for DVT with a history of polysubstance abuse as well as cardiomyopathy, pulmonary hypertension, and MRSA and Hep C infection presents to the [facility] ED due to shortness of breath who was admitted with acute hypoxemic respiratory distress. Acute hypoxemic respiratory failure, present on admission, ongoing - ABG at admission shows metabolic alkalosis with PO2 of 58.8 - CT PE protocol shows no definitive sign of pulmonary emboli however significant motion artifact is noted. There is also bilateral pleural effusions are monitored on the right and small the left with compressive atelectasis as well as ground glass nodules in the right upper lung apex and significant enlargement of pulmonary arteries consistent with pulmonary hypertension. - Pulmonary consulted. We appreciate their input -Morning ABGs show pO2 of 49.5 and an FiO2 of 1.0, pCO2 of 40.1, pH 7.509. - Patient was switched to Bipap this morning with FiO2 at 100 -Repeat Chest Xray this morning shows: Increasing opacification left lung base suspicious for pneumonia. Bilateral pleural effusions. -Consider dobutamine and further diuresing -Monitor pleural effusions, and if indicated, possible thoracentesis - Most recent ECHO at [facility] shows elevated pulmonary artery pressures, dilated RV and RA, RV severely hypokinetic, pulmonary artery pressures elevated at 60, severe tricuspid regurge -tricuspid valve is incompetent; however, patient is not a candidate for valve replacement given her hx of substance abuse -With the severity of her current medical state, we have consulted palliative to discuss goals of care Acute right upper quadrant and epigastric abdominal pain, present on admission, ongoing - CT abdomen shows hepatosplenomegaly likely contributing to portal hypertension with some pelvic ascites - Hepatitis C hepatitis B and HIV testing given hepatomegaly - Liver function tests show normal bili, normal AST ALT and normal alkaline phosphatase - Lipase at 78 and consistent with pancreatitis - Patient currently lacks a gallbladder noted on CT imaging - Pro calcitonin negative at 0.04 and inconsistent with infection - Patient started on Rocephin 2000 mg IV daily - Stool PCR ordered Chronic Pulmonary hypertension, present on admission, ongoing -likely secondary to her COPD, SAMMY, substance abuse - Records indicated the patient was previously on sildenafil - Contacted patient's pharmacy indicated that she is not currently taking sildenafil - Patient given one-time dose of sildenafil - Pulmonary consulted Acute hypokalemia, present on admission, resolved - Potassium of 3.3 on admission currently being diuresed with Lasix - Oral potassium 20 mEq scheduled with meals -Potassium corrected to 3.8 today Chronic Mild microcytic Anemia - To obtain records from recent hospitalizations including [facility] - MCV of 76.9 and patient currently is premenopausal with regular periods, consistent with iron deficiency - Anemia panel shows low Iron levels Ulcerated Cellulitis, present on admission, ongoing -no signs of active infection -Continue with IV antibiotics for coverage History of acute deep vein thromboses - Patient describes recent DVT diagnosed In late January 2017 - Right lower extremity is swollen warm and painful to touch and warm, however without significant leukocytosis and positive Pro calcitonin unlikely to be infection - Patient is a poor historian and records will be obtained from prior hospitalizations including [facility] - Patient's pharmacy indicates that she is currently taking Xarelto 15mg BID - Heparin drip initiated at admission. This has been stopped and patient has resumed taking her home dose of Xarelto History of Polysubstance abuse - Patient tested positive for methamphetamines - Patient has fentanyl IV for severe pain when necessary and oxycodone by mouth for moderate pain - Monitor for signs of withdrawal Anxiety with history PTSD - Monitor for signs of withdrawal - Given patient's acute hypoxic respiratory distress limited anti-anxiety medications will be given to avoid unnecessary intubation due to respiratory distress depression - Patient admitted to the ICU overnight Chronic hepatitis C - Hepatitis C antibody testing pending results - Hepatitis B antibody testing pending results - HIV testing pending results History of MRSA infection - MRSA nasal swab. negative DVT prophylaxis: patient is now on Xarelto GI prophylaxis: Protonix twice a day CODE STATUS full GI Prophylaxis: H2 luciano VTE Prophylaxis: Other (heparin drip) Resuscitation Status: CPR: Attempt Resuscitation Attending Statement The patient was seen and examined together with Dr. Hook on 02/21/17 and I have added additional information to the note above. Johnna Hook DO Feb 21, 2017 14:38 Fang Taylor DO Feb 21, 2017 21:06
--- NOTE | 2017-02-21 17:44 | NUR ---
Improved oxygenation with Bipap this morning. Vital signs stable, afebrile, SR on tele. Has appeared sleepy but awakens A/O and converses appropriately. 02 changed to High-flow this afternoon. Up in chair for about an hour assisted by PT this morning. A bit weepy this evening, stating that her boyfriend has not visited. Reports no nausea, and has been medicated for discomfort which she c/o only this evening. Cardiology to consult.
[2017-02-21] MEDS: Ondansetron 2 mg/mL 2 mL Inj IVPUSH PRN (18:50)
[2017-02-21] MEDS ORDERED: HYDROmorphone 1 mg/mL Inj IVPUSH PRN (19:35)
[2017-02-21] MEDS: LORazepam 1 mg Tablet PO PRN (19:48)
[2017-02-21] MEDS: cefTRIAXone Inj 2,000 MG in Dextrose 5% Minibag Plus 50 ML IV SCH (19:57)
--- NOTE | 2017-02-21 20:12 | PCM.ADCARE ---
Advance Care Planning Note Purpose of Encounter: Establish goals of care Parties in Attendance: The patient Lizzy Yañez Dr. Vamshi Moya Decisional Capacity: Patient was fully alert and oriented and appeared to be in full possession of her decisional capacity. Subjective: The patient made an attempt to leave AMA, but was too short of breath to make it out of the lobby and was taken back to her room. Upon discussion with the patient she revealed that her over-riding fear is of dying in the hospital without friends of loved ones in attendance. We delved deeply in to this issue, and discussed the reality that she is simply unable to even make it home under her own power at this stage in her disease, and that her best hope of passing on in a more comfortable setting is with the assistance of Comfort Care and Hospice. To that end the patient agreed to change her code status to DNR/DNI with the understanding that upon changing our priorities to comfort and quality of life over quantity would allow us to increase the pain medication available to her. . Objective: She agreed to have a discussion with Palliative care tomorrow AM to facilitate her transition to palliative care and Hospice, and she accepts that she may need to go to a SNF in order to live out her days in as much comfort as possible. Goals of Care Determinations: -Patient would like to survive to at least Sunday when her sister arrives from out of state -Patient had transitioned to DNR/DNI -Dilaudid has been increased in dosage and frequency and converted to IV -Will continue Antibiotics and Xarelto for the time being for comfort measures, though obviously Xarelto may be difficult to continue on Hospice. CODE STATUS: DNR/DNI Time Spent Adv.Care Planning: Time spent discussing, planning and coordinating transition of care > 35 minutes. Vamshi Moya DO Feb 21, 2017 20:12
[2017-02-21] MEDS: HYDROmorphone 1 mg/mL Inj IVPUSH PRN ×2 (20:57→23:37)
--- NOTE | 2017-02-21 21:21 | NUR ---
RN Ana was in with patient cleaning her up (pt had vomited), finished, and came to give report to this night RN. Once report had been received, bedside handoff/safety check performed on both patients, 2011 first, once completed moved onto 2010. Pt was gone. , charge weigher alerted. Per report from dimensional engineer, Florin received a call from Lizzy Early CNA who spotted a disheveled patient, appearing hypoxic in the hallway on 2nd floor before the elevators. Pt wheeled back into room 2010, face/nose mottled/blue, heavy work of breathing, tachypnic. Pt replaced on High Flow O2 and allowed to recover. Dr. Kam aware. Dr. Hess at bedside to speak with patient regarding goals of care. This RN spoke with patient at length about need for a safe discharge plan regardless of place. Pt expressed wishes to not alone, wanting to in her boyfriend Vamshi's arms and amongst her family. Pt stated that she left because she felt her pain was being ignored and she couldn't take the pain any longer. Pt contracts to safety. Pt agreeable to let staff know if her pain is too much or that she feels her anxiety is too much to handle. Pt was gone for a total of 10 minutes (ECG monitor strip to confirm times). Call placed to [facility] Supervisor to obtain contact information for sister Rin, patient's friend, and boyfriend Vamshi. Dr. Hess spoke with Rin over the telephone. Pt's pain and anxiety medications increased by Dr. Hess along with patient choosing to change her status to DNR/DNI. Confirmed this decision with the patient. Code status changed in the computer. Pt sleeping on High Fliow 50LPM, 100%FiO2, SpO2 88%.
[2017-02-21] MEDS ORDERED: DOBUTamine 500 mg/250 D5W 500,000 MCG in IV Premix 1 EACH IV SCH (22:58)
[2017-02-22 01:07] LABS: Hepatitis A Antibody IgM Negative (Negative); Hepatitis B Core Antibody IgM Negative (Negative)
[2017-02-22] MEDS: Ondansetron 2 mg/mL 2 mL Inj IVPUSH PRN (01:26)
[2017-02-22] MEDS: HYDROmorphone 1 mg/mL Inj IVPUSH PRN ×7 (01:27→23:17)
[2017-02-22] MEDS ORDERED: Dexmedetomidine 400 mCg/100 mL 400 MCG in IV Premix 1 EACH IV SCH (01:55)
[2017-02-22 03:01] VITALS: BP 92/63; PULSE 93; RESP 13; O2SAT 84
[2017-02-22 03:07] LABS: BASOPHILS % (AUTO) 0.4 % (0-3); EOSINOPHILS % (AUTO) 2.7 % (0-5); MONOCYTES % (AUTO) 11.3 % (4-12); Mean Corpuscular Hemoglobin 23.6 pg (27.0-35.0); Mean Corpuscular Volume 77.9 fL (81-100); NEUTROPHILS % (AUTO) 59.5 % (40-74); Platelet Count 185 bil/L (150-400)
[2017-02-22 03:36] LABS: Magnesium 1.9 mg/dL (1.6-2.6)
--- NOTE | 2017-02-22 05:24 | ABG ---
DateTimeAnalyzed 05:12:00 -_ pH ____7.532 - pCO2 ___33.7__ -mmHg pO2 114 -mmHg HCO3- ___28.1__ -mmol/L ABE ____5.7__ -mmol/L -2.0 2.0 tHb ___11.4__ -g/dL O2Hb ___95.1__ -% COHb ____3.3__ -% MetHb ____0.7__ -% sO2 ___99.1__ -% FIO2 __100.0__ -% CPAP ___16.0__ -cmH2O PEEP ___12.0__ -cmH2O Set_RR ___12.0__ -b/min Drawn By TLA - Date/Time Notified____ 05:23:00 -_ Spontaneous_RR ___23.0__ -b/min Oxygen Device 1 ____BIPAP - Notified Whom Jean Paul W.-RN - Age 38 -years B 755 -mmHg tO2 ___15.5__ -Vol% Oliver test N/A -
--- NOTE | 2017-02-22 05:57 | NUR ---
Shift Note [id number] For bedside handoff, patient not in room. See note titled Elopement 1919 High Flow 50LPM 80% FiO2, SpO2 88% with labored breathing from patient. 1956 Pts resuscitation status changed from Full Code to DNR/DNI, confirmed this with the patient. Pts goal is to make until Sunday to see her boyfriend, sister, and possibly her estranged children one last time. 2023 Ativan dosing changed to IV and increased dose/frequency for patients increasing anxiety. Benadryl added for patients itching 2ndary to IV Dilaudid administration, Dilaudid dosing and frequency increased for better patient pain management. 2299 DOButamine gtt started for hypotension, and to increase CI/CO. Titrated from initial of 2.5 to 5mcg/kg/minute based on IBW of 61KG (56 female (67inches)). 0134 SpO2 no better than while on High Flow. Pt not tolerating BIPAP 20/14 100% FiO2 even with Ativan and Dilaudid IVP. Pt returned to High Flow 60LPM 100%FiO2. 0200 BIPAP 16/10 RR 12 100% FiO2, Precedex gtt started at 0.2mcg/kg/minute. SpO2 77%. Dr. Moya aware. 0256 Phlebotomy in to draw blood for morning labs. 0420 Precedex gtt increased to 0.4, pt given Dilaudid 2mg IVP for patients pain. 0515 Phlebotomy in to draw blood for ordered AM VBG. Ran by RT Carol Rodríguez 0535 VBG resulted. pH 7.532, pCO2 34, cHCO3 28.1. 0600 Pt is much more comfortable. Pt resting well with BIPAP mask on.
[2017-02-22 07:47] VITALS: BP 88/54; RESP 17; O2SAT 84
[2017-02-22] MEDS: Potassium Chloride 20 mEq SR Tablet PO SCH (08:00)
[2017-02-22 08:30] VITALS: BP 88/54; PULSE 88; RESP 17; O2SAT 84
--- NOTE | 2017-02-22 09:36 | NUR ---
NUTRITION FOLLOW-UP: Assess: 46 YO F admitted to CCU with severe heart and respiratory failure requiring BiPAP. Per CCU rounds, the patient made an attempt to leave AMA yesterday but was too short of breath to make it out of the lobby and was taken back to her room. Upon discussion with the patient she revealed that her over-riding fear is dying in the hospital without friends of loved ones in attendance. Per care management note, the night resident explained that she is simply unable to even make it home under her own power at this stage in her disease, and that her best hope of passing on in a more comfortable setting is with the assistance of Comfort Care and Hospice. To that end the patient agreed to change her code status to DNR/DNI with the understanding that changing priorities to comfort and quality of life over quantity, increased pain medication would be available to her. 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 DIET: Heart Healthy. No PO intake recorded yet. LABS: Reviewed. Chloride 94, BUN 26, Cr 1.07, Glu 109, Alb 3.3. MEDICATIONS: Currently in process of weaning off Precedex and increasing pain medications. GI: No BM noted. SKIN: No issues noted. ANTHROPOMETRICS: Wt: 95.3 kg, Wt: 32.9 kg/m2, Admit wt: 95.3 kg, IBW: 61.4 kg. ESTIMATED NEEDS: BMI Calories: 9669-0292 kcal/day (20-22 kcal/kg BW) Protein: 74-92 g/day (1.2-1.5 g/kg IBW) NUTRITION DIAGNOSIS: 1) Comfort care precludes nutrition diagnosis. INTERVENTION: 1) Will continue diet as ordered, per authorization during CCU rounds. MONITOR/EVALUATE: No further monitoring or evaluation scheduled.
--- NOTE | 2017-02-22 10:11 | NUR ---
Palliative care note D/A: Dr. Malave has met with pt today and feels that it is most likely that she will pass away in acute care. She also feels it most prudent to plan for dc with SNF/Hospice if pt is able to be dc'ed at some point. Pt has expressed that she would prefer not to in hospital as evidenced by her two recent attempts at AMA. Pt is expressing that she wishes to be able to take her bipap on and off, wises to be able to eat food and wants to have her pain well controlled. Dr. Malave is concerned that with controlling her pain, pt may or may not be able to make it until Sunday when family will be here. She is not sure that pt can understand this more complex issue and discusses with sister Rin. Rin agrees to Hospice referral and Dr. Maalve kindly writes order. Rin can be reached at [phone]. This worker calls Rin to discuss further. Learn that pt has lived in [place] for some time. Rin has had intermittent contact with pt but thinks she has lived there about 10 years. Her family of her boyfriend Bry and his mother Mrs. Alas. Discussed need for SNF as well. Rin picks [facility] as hospice agency. Have explained that this worker will call for info visit meeting time and call Rin back to discuss. Rin understands that pt is near the end of her life and may not make it until Sunday. She is working with her son to see if the ticket can be changed. At this time, once she arrives at [facility], she is then taking the airporter to [facility] and is dropped off at the 711 at 1:00. She then has a ride to pick her up and transport her to [facility]. Rin has also been in touch with pt estranged children. Pt has 4 children, her youngest dtr lives in [facility], a special needs son lives in [facility], another dtr in the [place] area and the eldest dtr in [facility]. She is planning on contacting pt ex spouse to enlist his help with contacting pt children. left for [facility] intake line to inquire about a time for info visit. Phone call to cassandra Villarreal, to discuss above. P: Palliative care to follow. Lavinia [facility] Addendum: 02/22/17 at 1557 by RONEY SINCLAIR PC note amendment D/A: Was able to coordinate a 2:00 phone meeting between pt sister Rin and Frieda from [facility]. In later discussion, Frieda noted that Rin now attempting to get here to see pt on Sunday02/23/17. Frieda did not ask Rin to consent for [facility] as questions arose about DPOA status. Case discussed with Dr. Malave. Note that pt has estranged children but who would be her NOK. . Dr. Malave called to discuss dispo with cassandra Villarreal as Dr. Malave feels that pt is not able to comprehend and consent to a more complicated issue such as comfort care and hospice. Pt sister is in communication with children via social media, does not have their phone numbers and is working with their father to attempt contact. Dr. Malave professional opinion is that pt is expected to imminently pass away and may not make it until sister gets here tomorrow. Pt to remain in hospital for end of life care. P: Palliative care to follow. Lavinia [facility]
[2017-02-22] MEDS ORDERED: Haloperidol 5 mg/mL Inj IVPUSH PRN (10:20)
[2017-02-22] MEDS ORDERED: Atropine 1% 5 mL Ophthalmic Solution PO PRN (10:20)
--- NOTE | 2017-02-22 11:23 | PCM.PALLBR ---
Palliative Care Recommendation 46-year-old female with long-standing history of polysubstance abuse with consequent severe pulmonary hypertension, right heart dilation and failure, complete tricuspid valve incompetence, multiple additional medical problems and progressive respiratory failure admitted with severe hypoxic respiratory failure. Palliative medicine consult to assist with determination of goals of care. Summary of palliative recommendations: -Symptom management (Pain/other)- critical care medications discontinued today by Dr. Malave after speaking to pt's NOK, sister Rin (see below). 1. Dr. Malave set up comfort care orders. 2. Pain/Polysubstance abuse withdrawal prevention: fentanyl 50mcg/hr patch started with prn IV dilaudid (until transfer to SNF-->then I recommend d/c dilaudid and substitute with morphine concentrate at 10-15mg q 1 hour prn) 3. Secretions at end of life: for now, will use IV lasix and atropine gtts. Pt is alert enough that using a scopolamine patch might cause discomfort with dry lips, mouth, throat. We can place scopolamine patch once she is less aware of her surroundings. 4. Once [facility] team has rounded on pt, they will write the order to take her off CCU status and moved to PCC, MPC or OSC. -DPOA/Advanced Directives/POLST- Previously, patient has been inconsistent in delineating her wishes. During scene shifter on 02/21, she told the covering medical team that she wants comfort care and was willing to have her code changed to DNR/DNI. (See Dr. Vamshi Moya's note). In speaking with Rin today , she also agrees with this decision. Drs. Malave and Kamaljit spoke to pt after CCU rounds discussion of her case, and tried to engage pt in comfort care discussion but she was unable to comprehend the situation due to her hypoxia. Dr. Malave discussed situation at length with her sister Rin (closest living relative; [phone]) who lives in [facility] and is flying here SundayFeb 26. Dr. Malave explained that while Lizzy make simple choices, (i.e. she can state that she wants to take mask on and off at will, that she wants to drink water and other liquids, that she wants to be pain-free). Lizzy can not make difficult choices about comfort care because she cannot state what risks/ benefits of these choices are. Rin is willing to speak for Lizzy and state that it is now time for comfort care. Rin is also willing to speak to Hospice marketing sales representative to plan for a possible transfer out of hospital to a SNF with hospice managing comfort care. Dr. Malave counseled Rin that there is a strong probability that Lizzy will in the hospital before such a transfer can be arranged. Goals: From prior discussions with medical team and palliative care, we know Lizzy wants to outside the hospital in the company of friends. We are trying to arrange a SNF disposition with hospice care for this reason. Lizzy' s sister Rin will be talking to Hospice Fire Loss Prevention Engineer at 2pm 02/22. Family is wondering if pt can be transferred to [facility] as it is near location of friends and family. -Family/emotional support- her family members and significant others seem to have good insight and understanding into her problems. They are as supportive as they feel they can be but understand that she is probably nearing the end of her life. Another important family/friend contact is: her significant other Bry Alas , Mom, Mrs. Jaelyn Alas ([phone]). Problems: End of Life Preferences Patient's Short Term Goals: 1. To be able to take mask on and off. 2. To drink, eat when she wants 3. Someone to be present to put mask on, if she falls asleep and/or forgets to put it back on. (at least until her sister arrives) 4. To be out of pain. Long-Term Goals: 1. Wants to live to say good-bye to her sister on SundayFeb 26. 2. Wants to outside of the hospital with friends and family near her. Family Goals: 1. They hope to get her to a facility near family and friends in [facility]. 2. They hope to get her into hospice care to keep her comfortable until she dies at this outpatient location. Disposition Possible in hospital. Case Management will attempt to place her at a nursing facility with hospice Resuscitation Status Resuscitation Status: DNR/DNI:Do Not Resuscitate/Intubate POLST Updates/Changes Previous POLST?: No . Pain: Moderate Symptom management: Anxiety, Dyspnea Total time 100 minutes; >50% face to face with patient and/or family, providing counselling regarding plans and recommendations, and in care coordination with his/her medical teams. Palliative Brief Note Date of Service Feb 22, 2017 . Patient Identification: 46-year-old female with long-standing history of polysubstance abuse with consequent severe pulmonary hypertension, right heart dilation and failure, complete tricuspid valve incompetence, multiple additional medical problems and progressive respiratory failure admitted with severe hypoxic respiratory failure. Palliative medicine asked to see pt on 02/21 to assist with determination of goals of care. Patient had been quite inconsistent in expression of her wishes to other caregivers. Dr. Malave reviewed her overnight records in the EMR in detail and case discussed extensively on CCU rounds today. Subjective: Lizzy is awakened with some effort and wants to take her mask off , which is hurting her nose. She asks for water to drink. She denies pain currently, but wants to make sure she doesn't have pain. She can answer basic yes/no questions about her needs. She does not respond to more searching, in depth questions about future choices, (see PLAN). Exam: General: Middle age female, somewhat obese, appears disheveled and older than chronological age, somnolent on biPap. Eyes: Patient has a white pupillary lesion in her left eye which is unreactive to light, right eye with normal pupillary response, extraocular motion intact, anicteric sclera, noninjected conjunctiva HENT: Hirsutism on chin, Abrasion noted over bridge of nose,, dry mucous membranes without central cyanosis, Neck: Supple, trachea midline,no JVD, notable audible carotid pulses bilaterally without overlying bruits noted Cardiovascular: Tachycardia, regular rhythm, S4 present, loud S1with obscured S2, systolic ejection murmur,no rubs or gallops noted Lungs: Decreased breath sounds bilaterally with mild coarse breath sounds noted in lower left lung field no wheezing noted Abdomen: Soft, diffuse generalized tenderness most significant in right upper quadrant and epigastrium, nondistended, tympanic to percussion, normal active bowel sounds, without organomegaly Extremities: significant pitting edema bilaterally in the legs up to knees with notable cyanosis and poor capillary refill in all digits of all extremities, 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 Danya Malave MD Feb 22, 2017 11:22
--- NOTE | 2017-02-22 11:24 | PROG NOTE ---
[address] [address] PROGRESS NOTE PATIENT: LUCAS CORONA : 1970 MR#: [id number] ADMIT: 02/20/2017 JOB ID: [id number] DATE: 02/22/2017 PROBLEM LIST: 1. Hypoxic respiratory failure. 2. Bilateral pleural effusions. 3. Diarrhea. 4. History of pulmonary hypertension. 5. Tricuspid regurgitation. 6. Polysubstance abuse. 7. History of hepatitis B and C. SUBJECTIVE: Very anxious to have the BiPAP mask off. States it is too tight, she cannot hear, she cannot function very well and it is hurting her nose. Understands the implications of the taking the BiPAP mask off. Patient apparently tried elopement last night making it to the elevator corridor. She was found by nursing quite cyanotic. Apparently the discussion is that the patient does not wish to be intubated, but rather wants comfort care. OBJECTIVE: Temperature 36.7, pulse mid 80s, respiratory rate 13 to 17, blood pressure 88/54, O2 sat on BiPAP at 100% with settings of 17/8, I think, results in O2 sat of 84, with no particular changes in sat with changes in her BiPAP settings. Awakens easily, but nods off easily. Is much happier with the OxyMask. Somewhat uncomfortable mostly from a psychic nature, however asking for pain medications. Sitting with the head of the bed upright about 75 degrees. Conversing relatively easily when awake. Chest: Markedly decreased breath sounds with minimal inspiratory excursions. Heart somewhat distant heart tones, rapid rate. [place] best in the left lower chest. Abdomen is soft. A few bowel tones. Extremities grossly cyanotic. Wound looks dusky, but clean. White cell count 11,000 with normal differential. Hemoglobin is relatively stable at 11. Platelet count stable at 185,000. Sodium 136, potassium 3.9, chloride 94, CO2 is 29, BUN 26, creatinine 1.0. Glucose 109. Lactic acid 1. Calcium 8.7. Magnesium 1.9. Bilirubin, transaminases, and alkaline phos are normal. Procalcitonin 0.03. ASSESSMENT: Hypoxemic hypercarbic respiratory failure. Not tolerating BiPap. Does not want to be intubated. Currently her situation is such that if possible she wants to at home, but certainly with her family. I do not think we can get her home I am not even sure we get her to a SNIF. I think the best we can do is to make her comfortable. With that in mind, I would stop most of her medications and have palliative care consultation aware of the current situation so that we can institute a regimen. For a medical standpoint, would stop the Precedex and the dobutamine. I think is not warranted in a patient with pulmonary hypertension secondary to pulmonary problems. Therefore, I think the can be discontinued as well. Given the current environment of comfort care, I think stopping the medications is reasonable. I also think stopping BiPAP which she does not tolerate is reasonable. PLAN: 1. Discontinue all medications except those reasonably given for the patient's comfort. 2. Discontinue BiPAP. Spoke with the palliative Care about our thoughts in the situation. They will formulate a plan to assure her comfort. TIME SPENT: Critical care 40 minutes.
--- NOTE | 2017-02-22 12:22 | NUR ---
Social Work: Initial Assessment/Multidisciplinary Rounds D: pt discussed in multidisciplinary rounds; the patient attempted to leave AMA last night but was physically unable to leave the hospital. The patient reported that her fear is dying in a hospital and has decided to transition to comfort measures. Palliative care has placed a CM order to coordinate discharge planning with the patient's NOK/Sister, Ana ([phone]). PHOTO CARTOGRAPHER spoke with the patient's sister via telephone. She lives in [place] and confirms that they are transitioning to comfort care. The patient was previously living at home in [place] with her s/o. They acknowledge that the patient will not be able to return home as they are unable to care for her there. She is doing a hospice informational visit via telephone and intends to sign consents. She is requesting assistance locating a facility who can take the patient. PHOTO CARTOGRAPHER reviewed SNF CHOICE LIST. At this time, she has no specific preference except would like to be as close to [facility] as possible. PHOTO CARTOGRAPHER informed her that there is one facility on the [place] in which we will provide a referral to. She is agreeable to also sending the referral to [facility] and [facility] in [place] as backup options. Pt has [employer] and [facility] insurance. PHOTO CARTOGRAPHER has requested Cmm Inspector place referrals to these facilities. PPW and PASSR in folder for provider signature. A: Pt who is comfort care P: Evolving; [facility], [facility] and [facility] reviewing. PHOTO CARTOGRAPHER to continue to follow to determine discharge plan. LESLEY Caballero
--- NOTE | 2017-02-22 12:32 | NUR ---
HALFWAY TRANSFER : Faxed referral to [facility], patient has [facility] and is having Hospice Info visit today. Per AUTO BUMPER MECHANIC and MD orders
--- NOTE | 2017-02-22 14:36 | PCM.PNMED ---
Subjective Date of Service Feb 22, 2017 Subjective 46-year-old female reportedly on blood thinners for DVT with a history of polysubstance abuse as well as cardiomyopathy, pulmonary hypertension, and MRSA and Hep C infection presents to the [facility] ED due to shortness of breath who was admitted with acute hypoxemic respiratory distress. This morning, patient was very somnolent and lethargic. She was not responding to any of my questions but I did hear mumbling sounds. Nursing states that she woke up to ask for her pain medications though. Overnight, the patient tried to leave AMA but was too short of breath to make it past the lobby. She was taken back to her room and night resident discussed goals of care with her. Patient made it clear that she did not want to alone at a hospital and it was suggested that a more comfortable setting is with the assistance of [facility]. To that, the patient agreed to change her code status to DNR/DNI. She stated that she would like to survive to at least Sunday when her sister arrives from [place]; however, she does not want to be compliant with the Bipap at this time. After returning to her room, the patient was placed back on Bipap. Her blood pressure was low and she was started on a dobutamine drip, which did not have much effect on her. What helped her most was being on Bipap and using Precedex to keep her agitation controlled so that she will actually continue to use Bipap. ABG this morning showed pH 7.532, pCO2 33.7, pO2 114, HCO3 28.1 ROS unobtainable as patient was somnolent Exam Vital Signs Vital Sign - Last Date Time Temp Pulse Resp B/P Pulse Ox O2 Delivery O2 Flow Rate FiO2 02/22/17 03:01 93 13 92/63 84 BiPAP 100 02/21/17 21:52 60 02/21/17 19:46 37.1 Intake and Output 02/21/17 02/21/17 02/22/17 Cumulative From/Thru 15:00 23:00 07:00 02/20/17 11:46 - 02/22/17 05:06 Intake Total 430 ml 338 ml 1607 ml Output Total 1025 ml 250 ml 2775 ml Balance -595 ml 88 ml -1168 ml Intake Oral 360 ml 150 ml 810 ml IV Total 70 ml 188 ml 797 ml Output Urine Total 1025 ml 250 ml 2775 ml # Bowel Movements 0 0 0 Exam General: Patient is lying on bed, lethargic and somnolent, not in acute distress , arousable but does not stay awake HEENT: head normocephalic and atraumatic, left eye with dense white lesion and not reactive to light, Right eye- round and reactive to light, no scleral icterus, noninjected conjunctiva Neck: neck supple, non-tender, no lymphadenopathy, trachea midline, no JVD CV: regular rate and rhythm, s1 and s2 heard, radial pulses 2+ and equal bilaterally, murmur heard best on lower left sternal border Lungs:on Bipap with FiO2 at 100%, decreased breath sounds bilaterally, difficult to listen to lung bases as patient did not want to lean forward, no wheezes, no increased work of breathing Abdomen: normoactive bowel sounds on 4Q, soft, non-distended, diffusely tender to mild palpation Skin: increased warmth in LE bilaterally, LE bilaterally evidence of erythematous, open lesions draining serosanguinous fluids Extremities: UE, 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, LE- moderate pitting edema bilaterally, evidence of cyanosis throughout Neuro: Grossly neurologically intact, cranial nerves II through XII intact, no focal neuro deficits Psych: Patient with flat affect IVs and Medications Medications Reviewed: Medications were reviewed in detail Medications High Risk medications include Ativan and Dilaudid Lab and Diagnostics Laboratory Tests Test 02/22/17 02:55 White Blood Count 11.1th/mm3 (3.8-10.1) Red Blood Count 4.67mil/mm3 (3.90-5.20) Hemoglobin 11.0g/dL (12.0-15.6) Hematocrit 36.4% (35.0-46.0) Mean Corpuscular Volume 77.9fL (81-100) Mean Corpuscular Hemoglobin 23.6pg (27.0-35.0) Mean Corpuscular Hemoglobin Concent 30.2% (32.0-37.0) Red Cell Distribution Width 17.7% (12.3-15.4) Platelet Count 185bil/L (150-400) Neutrophils (%) (Auto) 59.5% (40-74) Lymphocytes (%) (Auto) 25.8% (14-46) Monocytes (%) (Auto) 11.3% (4-12) Eosinophils (%) (Auto) 2.7% (0-5) Basophils (%) (Auto) 0.4% (0-3) Sodium Level 136mEq/L (134-144) Potassium Level 3.9mEq/L (3.5-5.2) Chloride Level 94mEq/L (97-108) Carbon Dioxide Level 29mmol/L (18-29) Blood Urea Nitrogen 26mg/dL (6-24) Creatinine 1.07mg/dL (0.57-1.00) Estimat Glomerular Filtration Rate 79mL/min (>59) Glucose Level 109mg/dL (60-99) Lactic Acid Level 1.0mmol/L (0.4-2.0) Calcium Level 8.7mg/dL (8.5-10.1) Magnesium Level 1.9mg/dL (1.6-2.6) Total Bilirubin 0.5mg/dL (0.0-1.2) Aspartate Amino Transf (AST/SGOT) 24U/L (0-50) Alanine Aminotransferase (ALT/SGPT) 15U/L (0-32) Alkaline Phosphatase 62U/L (25-150) Total Protein 6.2g/dL (6.4-8.4) Albumin 3.3g/dL (3.4-5.0) Procalcitonin 0.03ng/mL (0.00-0.08) Microbiology 02/20/17 Blood Culture - Preliminary, Resulted NO GROWTH AFTER 24 HOURS 02/20/17 MRSA (PCR) - Preliminary, Resulted 02/20/17 Urine Culture - Preliminary, Resulted No growth to date Result Diagram: 02/22/17 0255 02/22/17 0255 X-Rays, CTs and MRIs Repeat X-RAY CHEST ONE VIEW, PORTABLE ([id number]) IMPRESSION: Increasing opacification left lung base suspicious for pneumonia. Bilateral pleural effusions. Approved by: Marychuy Escalante MD, PhD on 02/21/2017 at 8:53 CT ABDOMEN AND PELVIS WITH CONTRAST IMPRESSION: 1. Bilateral pleural effusions and bibasilar atelectasis. Possibility of pneumonia cannot be excluded. Source of effusions not known. 2. Diffuse edema throughout the abdominal and pelvic cano. 3. Hepatosplenomegaly. 4. Status post cholecystectomy. 5. Moderate amount of fluid in the pelvis could reflect mild ascites that is nonspecific. Approved by: Jessee Bueno M.D. on 02/20/2017 at 14:11 CT ANGIO CHEST PULMONARY EMBOLISM IMPRESSION: 1. No definite evidence of central pulmonary embolism. Evaluation of subsegmental branches in the lung bases is nondiagnostic due to motion artifact. 2. Bilateral pleural effusions, moderate to large on the right and small on the left, with associated compressive atelectasis. 3. Small clustered ground glass nodules in the right lung apex are nonspecific but likely infectious or inflammatory in etiology. 4. Enlargement of the pulmonary arteries as well as right ventricular enlargement suggesting pulmonary arterial hypertension. Approved by: Rashawn Coronado M.D. on 02/20/2017 at 13:56 X-RAY CHEST ONE VIEW, PORTABLE IMPRESSION: 1. Pleural-parenchymal opacity at the right lung base remains prominent. Interval improvement at the left base. Approved by: Jessee Bueno M.D. on 02/20/2017 at 13:11 Cardiac Echo Impressions Most recent ECHO on 02/15/17 from [facility] shows Low normal LV systolic function. LV EF 55%. RV and RA severely dilated. RV severely hypokinetic. Pulmonary artery pressures moderately elevated at about 60. Severe tricuspid regurgitation. Assessment & Plan 46-year-old female reportedly on blood thinners for DVT with a history of polysubstance abuse as well as cardiomyopathy, pulmonary hypertension, and MRSA and Hep C infection presents to the [facility] ED due to shortness of breath who was admitted with acute hypoxemic respiratory distress. On the evening of 12/02, patient agreed to be DNR/DNI. Her goals of care were discussed with palliative and patient made it clear that she doesn't want to alone at the hospital. Since patient was not completely alert today, her sister Rin ( closes living relative) agreed that it would be best to arrange comfort care for the patient. Per palliative, goals include symptom management and discontinuing critical care medications today. Acute hypoxemic hypercarbic respiratory failure, present on admission, ongoing - ABG at admission shows metabolic alkalosis with PO2 of 58.8 - CT PE protocol shows no definitive sign of pulmonary emboli however significant motion artifact is noted. There is also bilateral pleural effusions are monitored on the right and small the left with compressive atelectasis as well as ground glass nodules in the right upper lung apex and significant enlargement of pulmonary arteries consistent with pulmonary hypertension. - Pulmonary consulted. We appreciate their input -Patient attempted to elope last night but couldn't make it too far due to SOB. Patient was placed on Bipap this morning with FiO2 at 100 and Precedex was added to control agitation. Patient was saturating around 85. -Dobutamine was also added last night with minimal effect. -BiPap, Precedex and Dobutamine have been discontinued as patient is now comfort measures -Repeat Chest Xray 02/21/17 shows: Increasing opacification left lung base suspicious for pneumonia. Bilateral pleural effusions. - Most recent ECHO at [facility] shows elevated pulmonary artery pressures, dilated RV and RA, RV severely hypokinetic, pulmonary artery pressures elevated at 60, severe tricuspid regurge -tricuspid valve is incompetent; however, patient is not a candidate for valve replacement given her hx of substance abuse -With the severity of her current medical state, patient agreed to be DNR/DNI. Palliative was consulted and it was agreed upon with patient's sister Rin that the focus will be on comfort care and we have discontinued critical care medications Acute right upper quadrant and epigastric abdominal pain, present on admission, ongoing - CT abdomen shows hepatosplenomegaly likely contributing to portal hypertension with some pelvic ascites - Hepatitis C hepatitis B and HIV testing given hepatomegaly - Liver function tests show normal bili, normal AST ALT and normal alkaline phosphatase - Lipase at 78 and consistent with pancreatitis - Patient currently lacks a gallbladder noted on CT imaging - Pro calcitonin negative at 0.04 and inconsistent with infection - Patient started on Rocephin 2000 mg IV daily but we will discontinue this now that she is comfort care Chronic Pulmonary hypertension, present on admission, ongoing -likely secondary to her COPD, SAMMY, substance abuse - Records indicated the patient was previously on sildenafil - Contacted patient's pharmacy indicated that she is not currently taking sildenafil - Patient given one-time dose of sildenafil - Pulmonary consulted but at this time, we will discontinue any critical care medications Acute hypokalemia, present on admission, resolved - Potassium of 3.3 on admission - Oral potassium 20 mEq was given -Potassium corrected to 3.8 -Lasix has been stopped Chronic Mild microcytic Anemia - To obtain records from recent hospitalizations including [facility] - MCV of 76.9 and patient currently is premenopausal with regular periods, consistent with iron deficiency - Anemia panel shows low Iron levels Ulcerated Cellulitis, present on admission, ongoing -no signs of active infection -Stop IV antibiotics History of acute deep vein thromboses - Patient describes recent DVT diagnosed In late January 2017 - Right lower extremity is swollen warm and painful to touch and warm, however without significant leukocytosis and positive Pro calcitonin unlikely to be infection - Patient is a poor historian and records will be obtained from prior hospitalizations including [facility] - Patient's pharmacy indicates that she is currently taking Xarelto 15mg BID - We have stopped heparin drip initiated during admission as well as Xarelto as patient is comfort care History of Polysubstance abuse - Patient tested positive for methamphetamines Anxiety with history PTSD -Anti-anxiety medications per recommendations of Palliative Care Chronic hepatitis C - Hepatitis C antibody testing pending results - Hepatitis B antibody testing pending results - HIV testing pending results History of MRSA infection - MRSA nasal swab Positive Disposition: The patient is a very poor prognosis especially with her tricuspid valve not being functional and also having pulmonary hypertension as well. The patient has elected to go on comfort care at this time and would like to be around until Sunday when her sister arrived from [place] however at this time the patient is being very noncompliant with using her BiPAP for which she is currently dependent on. If the patient no longer wants to continue using the BiPAP she will most likely within the next 24 hours. We will continue to treat the patient as she desires. CODE STATUS DNR/DNI Pain Evaluation: Adequate Pain Control GI Prophylaxis: H2 luciano VTE Prophylaxis: Other (heparin drip) Resuscitation Status: DNR/DNI:Do Not Resuscitate/Intubate Time spent Greater than 35 minutes Attending Statement The patient was seen and examined together with Dr. Hook on 02/22/17 and I have added additional information to the note above. Johnna Hook DO Feb 22, 2017 06:25 Fang Taylor DO Feb 23, 2017 14:26
--- NOTE | 2017-02-22 16:36 | NUR ---
Assumed care Assumed care of Pt from Bita Bowling RN at ~1500. Pt obtunded and appeared to be comfortable at that time. Pt then later became quite restless/disoriented in bed, Pt repositioned and new bedding placed. Pt also given 2mg PRN IV lorazepam at this time, Pt appeared much more comfortable after interventions. Addendum: 02/22/17 at 1831 by WELLINGTON GALLEGO RN Pt awoke briefly prior to the end of the shift and was able to verbalize that she was in pain, Pt given 1mg PRN dilaudid IV, Pt fell back asleep and appears to be resting comfortably.
--- NOTE | 2017-02-23 01:30 | NUR ---
Pt was on comfort measures. IV Ativan, Dilaudid, non-responsive all shift , : 0020, 02/23/2017, Documentation and communication conducted, [place] [facility] [place]. Sister , Rin Ordonez was notified , an attempt was made to contact significant other,Vamshi at phone number provided no contact was made.
--- NOTE | 2017-02-23 04:07 | PCM.DC.MEX ---
Discharge Summary Date of Service Feb 23, 2017 Dates of Hospitalization Date of Hospital Admission Feb 20, 2017 at 14:27 Date of Expiration: Feb 23, 2017 Time of Expiration: 00:20 Providers: Admitting Physician: Fang Taylor DO Primary Care Physician: Maria Teresa Dunbar MD Attending Physician: Fang Taylor DO Diagnosis at Time of Acute hypoxemic hypercarbic respiratory failure Procedures XRay, CTs & MRIs Repeat X-RAY CHEST ONE VIEW, PORTABLE ([id number]) IMPRESSION: Increasing opacification left lung base suspicious for pneumonia. Bilateral pleural effusions. Approved by: Marychuy Escalante MD, PhD on 02/21/2017 at 8:53 CT ABDOMEN AND PELVIS WITH CONTRAST IMPRESSION: 1. Bilateral pleural effusions and bibasilar atelectasis. Possibility of pneumonia cannot be excluded. Source of effusions not known. 2. Diffuse edema throughout the abdominal and pelvic cano. 3. Hepatosplenomegaly. 4. Status post cholecystectomy. 5. Moderate amount of fluid in the pelvis could reflect mild ascites that is nonspecific. Approved by: Jessee Bueno M.D. on 02/20/2017 at 14:11 CT ANGIO CHEST PULMONARY EMBOLISM IMPRESSION: 1. No definite evidence of central pulmonary embolism. Evaluation of subsegmental branches in the lung bases is nondiagnostic due to motion artifact. 2. Bilateral pleural effusions, moderate to large on the right and small on the left, with associated compressive atelectasis. 3. Small clustered ground glass nodules in the right lung apex are nonspecific but likely infectious or inflammatory in etiology. 4. Enlargement of the pulmonary arteries as well as right ventricular enlargement suggesting pulmonary arterial hypertension. Approved by: Rashawn Coronado M.D. on 02/20/2017 at 13:56 X-RAY CHEST ONE VIEW, PORTABLE IMPRESSION: 1. Pleural-parenchymal opacity at the right lung base remains prominent. Interval improvement at the left base. Approved by: Jessee Bueno M.D. on 02/20/2017 at 13:11 Cardiac Echo Impression Most recent ECHO on 02/15/17 from [facility] shows Low normal LV systolic function. LV EF 55%. RV and RA severely dilated. RV severely hypokinetic. Pulmonary artery pressures moderately elevated at about 60. Severe tricuspid regurgitation. Brief History Taken from history of present illness 46-year-old female reportedly on blood thinners for DVT with a history of polysubstance abuse as well as cardiomyopathy, pulmonary hypertension, and MRSA and Hep C infection presents to the [facility] ED due to shortness of breath. The patient reports that she was admitted to [facility] in [place] for low oxygenation due to her weak heart however she left AMA yesterday when they start talking to her about possibly going on hospice. The patient states that her medications were confiscated prior to the patient leaving. The patient was seen by her PCP this morning and noticed discoloration of her legs with a low oxygen saturation reportedly in the 70s on room air. The patient states that her legs were mottled when she was admitted to [facility] but looked normal last night. The patient occasionally experiences leg pain and numbness. The patient also reports abdominal and GI distress over the last week with nausea vomiting and lower abdominal pain however denies hematemesis hematochezia or melena. She admits to nausea, several episodes of vomiting including three times today, vomiting secondary to coughing, daily episodes of diarrhea, headaches located behind her left eye, coughing with dyspnea on exertion. Patient reports her last menstrual period ended 2 days ago and is typically regular except for when she is using IV heroin. Patient has a long history of polysubstance abuse including IV heroin last used 2 months prior, inhaled methamphetamines two days ago. Hospital Course 46-year-old female reportedly on blood thinners for DVT with a history of polysubstance abuse as well as cardiomyopathy, pulmonary hypertension, and MRSA and Hep C infection presented to the [facility] ED due to shortness of breath who was admitted with acute hypoxemic respiratory distress. On the evening of 02/21/17, patient agreed to be DNR/DNI. Her goals of care were discussed with palliative and patient made it clear that she doesn't want to alone at the hospital. Per palliative, goals included symptom management and discontinuing critical care medications. Acute hypoxemic hypercarbic respiratory failure, present on admission, resolved - ABG at admission showed metabolic alkalosis with PO2 of 58.8 - CT PE protocol showed no definitive sign of pulmonary emboli however significant motion artifact is noted. There was also bilateral pleural effusions are monitored on the right and small the left with compressive atelectasis as well as ground glass nodules in the right upper lung apex and significant enlargement of pulmonary arteries consistent with pulmonary hypertension. - Pulmonary consulted. We appreciate their input -Patient attempted to elope last night but couldn't make it too far due to SOB. Patient was placed on Bipap this morning with FiO2 at 100 and Precedex was added to control agitation. Patient was saturating around 85. -Dobutamine was also added last night with minimal effect. -BiPap, Precedex and Dobutamine have been discontinued as patient is now comfort measures -Repeat Chest Xray 02/21/17 shows: Increasing opacification left lung base suspicious for pneumonia. Bilateral pleural effusions. - Most recent ECHO at [facility] shows elevated pulmonary artery pressures, dilated RV and RA, RV severely hypokinetic, pulmonary artery pressures elevated at 60, severe tricuspid regurge -tricuspid valve is incompetent; however, patient is not a candidate for valve replacement -With the severity of her current medical state, patient agreed to be DNR/DNI. Palliative was consulted and it was agreed upon with patient's sister Rin that the focus was on comfort care and we have discontinued critical care medications Acute right upper quadrant and epigastric abdominal pain, present on admission, resolved - CT abdomen showed hepatosplenomegaly likely contributing to portal hypertension with some pelvic ascites - Hepatitis C hepatitis B and HIV testing given hepatomegaly - Liver function tests showed normal bili, normal AST ALT and normal alkaline phosphatase - Lipase at 78 and consistent with pancreatitis - Patient lacks a gallbladder noted on CT imaging - Pro calcitonin negative at 0.04 and inconsistent with infection - Patient was started on Rocephin 2000 mg IV daily but was discontinued at time of comfort care Chronic Pulmonary hypertension, present on admission, resolved -likely secondary to her COPD, SAMMY, substance abuse - Records indicated the patient was previously on sildenafil - Contacted patient's pharmacy indicated that she is not currently taking sildenafil - Patient given one-time dose of sildenafil - Pulmonary consulted but at this time, we will discontinue any critical care medications Acute hypokalemia, present on admission, resolved - Potassium of 3.3 on admission - Oral potassium 20 mEq was given -Potassium corrected to 3.8 -Lasix stopped Chronic Mild microcytic Anemia, resolved - Obtained records from recent hospitalizations including [facility] - MCV of 76.9 and patient was premenopausal with regular periods, consistent with iron deficiency - Anemia panel showed low Iron levels Ulcerated Cellulitis, present on admission, resolved -no signs of active infection -Stopped IV antibiotics History of acute deep vein thromboses - Patient described recent DVT diagnosed In late January 2017 - Right lower extremity was swollen, painful to touch and warm, however without significant leukocytosis and positive Pro calcitonin unlikely to be infection - Patient is a poor historian and records obtained from prior hospitalizations including [facility] - Patient's pharmacy indicates that she was taking Xarelto 15mg BID - We have stopped heparin drip initiated during admission as well as Xarelto as patient is comfort care History of Polysubstance abuse - Patient tested positive for methamphetamines Anxiety with history PTSD -Anti-anxiety medications per recommendations of Palliative Care Chronic hepatitis C, resolved History of MRSA infection - MRSA nasal swab Positive CODE STATUS DNR/DNI Expiration: 02/23/2017 at 0020 nursing paged physician due to patient demise. On exam patient was unresponsive to sternal rub with fixed and dilated pupils, no cardiac or respiratory sounds. Exam Test 02/20/17 12:10 02/20/17 12:51 02/20/17 12:56 02/20/17 18:26 Reticulocyte Count,Calculated 1.8% (0.6-2.6) Prothrombin Time 12.0sec (8.1-12.5) Prothromb Time International Ratio 1.12ratio D-Dimer 1.02mg/L FEU (<0.50) Iron Level 25ug/dL (35-150) Total Iron Binding Capacity 496ug/dL (250-450) Percent Iron Saturation 5%sat (15-50) Unsaturated Iron Binding 471.2ug/dL Ferritin 46ng/mL (13-150) Troponin T 0.010ug/L (0.0-0.011) Pro-B-Type Natriuretic Peptide 06567oo/mL (0-249) Lipase 78U/L (13-60) Urine Opiates Screen Positive Urine Methadone Screen Negative Urine Barbiturates Screen Negative Urine Amphetamines Screen Positive Urine Benzodiazepines Screen Negative Urine Cocaine Metabolite Screen Negative Urine Cannabinoids Screen Negative Urine Color Yellow (YELLOW) Urine Appearance Clear (CLEAR,HAZY) Urine pH 6.0 (5.0-8.0) Urine Specific [place] 1.015 (1.003-1.035) Urine Protein 30mg/dL (NEG,TRACE) Urine Glucose (UA) Negativemg/dL (NEGATIVE) Urine Ketones Negativemg/dL (NEGATIVE) Urine Occult Blood Negative (NEGATIVE) Urine Nitrite Negative (NEGATIVE) Urine Bilirubin Negative (NEGATIVE) Urine Urobilinogen Normalmg/dL (NORMAL) Urine Leukocyte Esterase Trace (NEGATIVE) Urine RBC 0-2/hpf (0-2) Urine WBC 0-5/hpf (0-5) Urine Epithelial Cells Few/hpf (NONE-MOD) Urine Crystals None seen (NONE SEEN) Urine Bacteria Few/hpf (NONE-FEW) Urine Hyaline Casts None/lpf (NONE) Urine Granular Casts None seen (NONE SEEN) Urine Waxy Casts None seen (NONE SEEN) Urine Red Blood Cell Casts None seen (NONE SEEN) Urine White Blood Cell Casts None seen (NONE SEEN) Urine Mucus None seen (None Seen) Urine Trichomonas None seen (NONE SEEN) Urine Yeast None (NONE SEEN) Urinalysis Comment None Urine Culture Reflexed Indicated Hold Purple Top Tube Received (Received) Hemoglobin A1c 6.6% (4.8-5.6) Test 02/20/17 22:30 02/21/17 04:00 02/22/17 02:55 Hold Montiel Top Tube Received (Received) Activated Partial Thromboplast Time 58.9sec (22.8-33.0) Hepatitis A IgM Antibody Negative (Negative) Hepatitis B Surface Antigen Negative (Negative) Hepatitis B Core IgM Antibody Negative (Negative) Hepatitis C Antibody >11.0s/co ratio Hepatitis C Antibody Comment Comment (.) Hepatitis C Comment . HIV (1&2) Ag and Ab, 4th Generation Non reactive (Non Reactive) White Blood Count 11.1th/mm3 (3.8-10.1) Red Blood Count 4.67mil/mm3 (3.90-5.20) Hemoglobin 11.0g/dL (12.0-15.6) Hematocrit 36.4% (35.0-46.0) Mean Corpuscular Volume 77.9fL (81-100) Mean Corpuscular Hemoglobin 23.6pg (27.0-35.0) Mean Corpuscular Hemoglobin Concent 30.2% (32.0-37.0) Red Cell Distribution Width 17.7% (12.3-15.4) Platelet Count 185bil/L (150-400) Neutrophils (%) (Auto) 59.5% (40-74) Lymphocytes (%) (Auto) 25.8% (14-46) Monocytes (%) (Auto) 11.3% (4-12) Eosinophils (%) (Auto) 2.7% (0-5) Basophils (%) (Auto) 0.4% (0-3) Sodium Level 136mEq/L (134-144) Potassium Level 3.9mEq/L (3.5-5.2) Chloride Level 94mEq/L (97-108) Carbon Dioxide Level 29mmol/L (18-29) Blood Urea Nitrogen 26mg/dL (6-24) Creatinine 1.07mg/dL (0.57-1.00) Estimat Glomerular Filtration Rate 79mL/min (>59) Glucose Level 109mg/dL (60-99) Lactic Acid Level 1.0mmol/L (0.4-2.0) Calcium Level 8.7mg/dL (8.5-10.1) Magnesium Level 1.9mg/dL (1.6-2.6) Total Bilirubin 0.5mg/dL (0.0-1.2) Aspartate Amino Transf (AST/SGOT) 24U/L (0-50) Alanine Aminotransferase (ALT/SGPT) 15U/L (0-32) Alkaline Phosphatase 62U/L (25-150) Total Protein 6.2g/dL (6.4-8.4) Albumin 3.3g/dL (3.4-5.0) Procalcitonin 0.03ng/mL (0.00-0.08) Attending Statement The patient was seen and examined together with Dr. Segal on 02/23 and I agree with the history, exam and plan as outlined in the note above. Jessy Segal DO Feb 23, 2017 04:07 Darren Olivares MD Feb 23, 2017 19:33
== END 2017-02-23 00:20 | disposition expired | DRG 189 ==
LOC: SED 11:21 → CCU 14:27 → PCC 02-22 13:46
PROVIDERS: ADMIT Neuromusculoskeletal Medicine & OMM; ATTEND Neuromusculoskeletal Medicine & OMM
PROC: 4A033R1 Measurement of Arterial Saturation, Peripheral, Percutaneous Approach (ICD-10-PCS; 2017-02-20)
PROC: 5A09458 Assistance with Respiratory Ventilation, 24-96 Consecutive Hours, Intermittent Positive Airway Pressure (ICD-10-PCS; principal; 2017-02-21)
DX: J96.01 Acute respiratory failure with hypoxia (principal); E87.3 Alkalosis; I27.0 Primary pulmonary hypertension; J44.9 Chronic obstructive pulmonary disease, unspecified; J90 Pleural effusion, not elsewhere classified; R16.2 Hepatomegaly with splenomegaly, not elsewhere classified; K76.6 Portal hypertension; Z79.82 Long term (current) use of aspirin; Z86.14 Personal history of Methicillin resistant Staphylococcus aureus infection; Z86.718 Personal history of other venous thrombosis and embolism; F17.210 Nicotine dependence, cigarettes, uncomplicated; H54.42 Blindness, left eye, normal vision right eye; Z51.5 Encounter for palliative care; R10.11 Right upper quadrant pain; R10.13 Epigastric pain; E87.6 Hypokalemia; D50.9 Iron deficiency anemia, unspecified; F41.9 Anxiety disorder, unspecified; B18.2 Chronic viral hepatitis C; G47.33 Obstructive sleep apnea (adult) (pediatric); R19.7 Diarrhea, unspecified; Z91.19 Patient's noncompliance with other medical treatment and regimen; Z66 Do not resuscitate; J96.02 Acute respiratory failure with hypercapnia